=== PATIENT | male | born 1960 | race Caucasian/White ===

== ENCOUNTER 2016-11-29 17:52 | Inpatient (IN) | payer MEDICARE ==
[~2016-11-29] VITALS: Ht 188 cm; Wt 58.1 kg
[2016-11-29 18:05] VITALS: BP_SYST 112
[2016-11-29] MEDS ORDERED: NOR10 PO (18:29)
[2016-11-29] MEDS ORDERED: METF-509 PO (18:29)
[2016-11-29] MEDS ORDERED: DIVA125C4 PO (18:29)
[2016-11-29] MEDS ORDERED: LEVE500T53 PO (18:29)
[2016-11-29] MEDS ORDERED: FERR-57 PO (18:29)
[2016-11-29] MEDS ORDERED: SERT-131 PO (18:29)
[2016-11-29] MEDS ORDERED: PRAV10TA PO (18:29)
[2016-11-29] MEDS ORDERED: ACET325T53 PO (18:29)
[2016-11-29] MEDS ORDERED: OMEP1CAP2 PO (18:29)
[2016-11-29] MEDS ORDERED: METO-442 PO (18:29)
[2016-11-29] MEDS ORDERED: PHEN200C3 PO (18:29)
[2016-11-29] MEDS ORDERED: ASPI81TA2 PO (18:29)
[2016-11-29 19:40] LABS: BASOPHILS # (AUTO) 0.1 K/uL (0.0-0.2); BASOPHILS % (AUTO) 0.9 % (0.0-2.0); EOSINOPHILS # (AUTO) 0.1 K/uL (0.0-0.4); EOSINOPHILS % (AUTO) 0.5 % (0.0-4.0); HEMATOCRIT 39.5 % (36-54); HEMOGLOBIN 12.9 g/dL (14.0-18.0); MEAN CORPUSCULAR HEMOGLOBIN 29 pg (27-31); MEAN CORPUSCULAR HGB CONC 33 % (32-36); MEAN CORPUSCULAR VOLUME 90 fL (79.0-98.0); MONOCYTES # (AUTO) 0.9 K/uL (0.0-1.0); MONOCYTES % (AUTO) 8.4 % (1.7-9.3); NEUTROPHILS # (AUTO) 7.9 K/uL (1.8-7.7); NEUTROPHILS % (AUTO) 72.2 % (40.0-70.0); PLATELET COUNT (AUTO) 166 K/uL (130-430); RED CELL DISTRIBUTION WIDTH 14.3 % (9.0-15.0)
[2016-11-29 19:55] LABS: CALCIUM 8.6 mg/dL (8.4-11.0); CREATININE 0.63 mg/dL (0.55-1.30); INR 1.1 (0.80-1.20); POTASSIUM 3.6 mmol/L (3.5-5.1); PROTHROMBIN TIME 12.1 SECS (9.5-12.5)
[2016-11-29 20:13] LABS: ALBUMIN 2.9 g/dL (3.4-4.8); FREE T4 (FREE THYROXINE) 0.6 ng/dL (0.6-1.6); TOTAL BILIRUBIN 0.6 mg/dL (0.0-1.0); TOTAL PROTEIN, SERUM 7.5 g/dL (6.4-8.3)
[2016-11-29] MEDS ORDERED: NACL 0.9% 1,000 ML IV ONE (20:30)
[2016-11-29] MEDS: SIMVASTATIN 10 MG TABLET PO SCH (21:00)
[2016-11-29 21:25] VITALS: BP_SYST 132
[2016-11-29 21:39] VITALS: BP_SYST 132
[2016-11-29] MEDS ORDERED: INSULIN REGULAR, HUMAN 100 UNITS/ML, 10 ML VIAL (novoLIN R) SUBCUT PRN (22:15)
[2016-11-29] MEDS: levETIRAcetam 500 MG TABLET PO SCH (22:15)
[2016-11-29] MEDS: METOPROLOL TARTRATE 50 MG TABLET PO SCH (22:15)
[2016-11-29] MEDS ORDERED: DEXTROSE 50% JECT 50 ML DISP.SYRIN IVP PRN (22:15)
[2016-11-30 00:12] VITALS: BP_SYST 137
[2016-11-30] MEDS ORDERED: levETIRAcetam 500 MG TABLET PO ONE (00:15)
[2016-11-30] MEDS ORDERED: SIMVASTATIN 10 MG TABLET PO ONE (00:15)
[2016-11-30] MEDS ORDERED: METOPROLOL TARTRATE 50 MG TABLET PO ONE (00:15)
[2016-11-30] MEDS: LR 1,000 ML IV SCH ×2 (00:17→09:02)
[2016-11-30 04:00] VITALS: BP_SYST 92
[2016-11-30 06:52] LABS: CALCIUM 8.9 mg/dL (8.4-11.0); CREATININE 0.59 mg/dL (0.55-1.30); POTASSIUM 3.4 mmol/L (3.5-5.1)
[2016-11-30 07:00] LABS: BASOPHILS % (AUTO) 0.3 % (0.0-2.0); EOSINOPHILS # (AUTO) 0.1 K/uL (0.0-0.4); EOSINOPHILS % (AUTO) 1.1 % (0.0-4.0); HEMATOCRIT 39.6 % (36-54); LYMPHOCYTES # (AUTO) 2.2 K/uL (1.0-5.5); LYMPHOCYTES % (AUTO) 23.3 % (20.5-51.5); MEAN CORPUSCULAR HEMOGLOBIN 29 pg (27-31); MEAN CORPUSCULAR HGB CONC 33 % (32-36); MEAN CORPUSCULAR VOLUME 90 fL (79.0-98.0); MONOCYTES % (AUTO) 10.9 % (1.7-9.3); NEUTROPHILS # (AUTO) 6.2 K/uL (1.8-7.7); NEUTROPHILS % (AUTO) 64.4 % (40.0-70.0); PLATELET COUNT (AUTO) 153 K/uL (130-430); RED BLOOD CELL COUNT(AUTO) 4.42 MIL/uL (4.2-6.2); WHITE BLOOD COUNT (AUTO) 9.6 K/uL (4.8-10.8)
[2016-11-30 08:00] VITALS: BP_SYST 102
[2016-11-30] MEDS ORDERED: CEFAZOLIN 1 GM IVPB PREMIX 50 ML IV ONE (08:15)
[2016-11-30] MEDS: metFORMIN HCL 500 MG TABLET PO SCH (08:30)
[2016-11-30] MEDS: amLODIPine BESYLATE 10 MG TABLET PO SCH (09:00)
[2016-11-30] MEDS: ACETAMINOPHEN 325 MG TABLET PO SCH ×2 (09:00→20:55)
[2016-11-30] MEDS: ASPIRIN 81 MG TAB.CHEW PO SCH (09:00)
[2016-11-30] MEDS: METOPROLOL TARTRATE 50 MG TABLET PO SCH ×2 (09:00→20:55)
[2016-11-30] MEDS ORDERED: PHENYTOIN SODIUM PO SCH (09:00)
[2016-11-30] MEDS: levETIRAcetam 500 MG TABLET PO SCH (09:00)
[2016-11-30] MEDS: FERROUS SULFATE 325 MG TABLET.DR PO SCH ×2 (09:00→20:54)
[2016-11-30] MEDS ORDERED: OMEPRAZOLE PO SCH (09:00)
[2016-11-30] MEDS: PANTOPRAZOLE SODIUM 40 MG TAB PO SCH (09:00)
[2016-11-30] MEDS ORDERED: DIVALPROEX SODIUM 125 MG CAP.(DEPAKOTE SPRINKLE) PO SCH (09:00)
[2016-11-30] MEDS ORDERED: SODIUM BICARBONATE PO SCH (09:00)
[2016-11-30 11:47] VITALS: BP_SYST 102
[2016-11-30] MEDS: SERTRALINE HCL 50 MG TABLET PO SCH (15:31)
[2016-11-30] MEDS: D5LR 1,000 ML IV SCH (16:10)
[2016-11-30 17:00] VITALS: BP_SYST 105
[2016-11-30] MEDS ORDERED: VALPROATE SODIUM 500 MG in D5W 100 ML IV SCH (17:00)
[2016-11-30] MEDS ORDERED: POTASSIUM CHLORIDE 40 MEQ, LIDOCAINE JECT 2% PF 100 MG 50 MG in NS 250 ML IV ONE (17:00)
[2016-11-30] MEDS ORDERED: VALPROATE SODIUM 100 MG/ML VIAL (DEPACON) IV ONE (17:29)
[2016-11-30] MEDS: PHENYTOIN SODIUM 100 MG/2 ML VIAL (DILANTIN) IVP SCH ×2 (18:04→22:00)
[2016-11-30] MEDS: VALPROATE SODIUM 500 MG in D5W 100 ML IV SCH (18:04)
[2016-11-30 19:45] VITALS: BP_SYST 103
[2016-11-30] MEDS: SIMVASTATIN 10 MG TABLET PO SCH (20:55)
[2016-11-30] MEDS ORDERED: PRAVASTATIN SODIUM 10 MG TABLET (PRAVACHOL) PO SCH (21:00)
[2016-11-30] MEDS ORDERED: PHENYTOIN SODIUM 100 MG/2 ML VIAL (DILANTIN) IVP ONE (21:45)
[2016-12-01 01:18] VITALS: BP_SYST 122
[2016-12-01 03:27] VITALS: BP_SYST 136
[2016-12-01] MEDS: D5LR 1,000 ML IV SCH ×2 (05:18→22:57)
[2016-12-01] MEDS: VALPROATE SODIUM 500 MG in D5W 100 ML IV SCH ×2 (05:20→18:28)
[2016-12-01] MEDS: PHENYTOIN SODIUM 100 MG/2 ML VIAL (DILANTIN) IVP SCH ×3 (05:22→22:57)
[2016-12-01 06:09] LABS: HEPATITIS A AB, IgM Negative (Negative); HEPATITIS B CORE AB, IgM Negative (Negative); HEPATITIS B SURFACE AG Negative (Negative)
[2016-12-01 06:39] LABS: INR 1.5 (0.80-1.20); PROTHROMBIN TIME 16.2 SECS (9.5-12.5)
[2016-12-01 06:49] LABS: ALBUMIN 2.9 g/dL (3.4-4.8); BILIRUBIN,DIRECT 0.3 mg/dL (0.0-0.3); CALCIUM 8.2 mg/dL (8.4-11.0); CREATININE 0.55 mg/dL (0.55-1.30); TOTAL BILIRUBIN 0.6 mg/dL (0.0-1.0); TOTAL PROTEIN, SERUM 7.7 g/dL (6.4-8.3)
[2016-12-01 06:50] LABS: BASOPHILS % (AUTO) 0.3 % (0.0-2.0); EOSINOPHILS # (AUTO) 0.1 K/uL (0.0-0.4); EOSINOPHILS % (AUTO) 1.2 % (0.0-4.0); HEMATOCRIT 38.2 % (36-54); HEMOGLOBIN 12.9 g/dL (14.0-18.0); LYMPHOCYTES # (AUTO) 1.8 K/uL (1.0-5.5); LYMPHOCYTES % (AUTO) 21.9 % (20.5-51.5); MEAN CORPUSCULAR HEMOGLOBIN 30 pg (27-31); MEAN CORPUSCULAR HGB CONC 34 % (32-36); MEAN CORPUSCULAR VOLUME 90 fL (79.0-98.0); MONOCYTES # (AUTO) 0.7 K/uL (0.0-1.0); MONOCYTES % (AUTO) 8.5 % (1.7-9.3); NEUTROPHILS # (AUTO) 5.7 K/uL (1.8-7.7); NEUTROPHILS % (AUTO) 68.1 % (40.0-70.0); PLATELET COUNT (AUTO) 158 K/uL (130-430); RED BLOOD CELL COUNT(AUTO) 4.23 MIL/uL (4.2-6.2); RED CELL DISTRIBUTION WIDTH 14.1 % (9.0-15.0); WHITE BLOOD COUNT (AUTO) 8.3 K/uL (4.8-10.8)
[2016-12-01 06:56] LABS: POTASSIUM 2.9 mmol/L (3.5-5.1)
[2016-12-01] MEDS ORDERED: POTASSIUM CHLORIDE 40 MEQ in NS 250 ML IV ONE (07:30)
[2016-12-01] MEDS ORDERED: MEPERIDINE HCL/PF 100 MG/ML AMP ONE (07:46)
[2016-12-01 08:00] VITALS: BP_SYST 118
[2016-12-01] MEDS: metFORMIN HCL 500 MG TABLET PO SCH (08:30)
[2016-12-01] MEDS: PANTOPRAZOLE SODIUM 40 MG TAB PO SCH (09:00)
[2016-12-01] MEDS: SERTRALINE HCL 50 MG TABLET PO SCH (09:00)
[2016-12-01] MEDS: amLODIPine BESYLATE 10 MG TABLET PO SCH (09:00)
[2016-12-01] MEDS: METOPROLOL TARTRATE 50 MG TABLET PO SCH ×2 (09:00→20:57)
[2016-12-01] MEDS: ACETAMINOPHEN 325 MG TABLET PO SCH ×2 (09:00→21:00)
[2016-12-01] MEDS: FERROUS SULFATE 325 MG TABLET.DR PO SCH ×2 (09:00→20:54)
[2016-12-01] MEDS: ASPIRIN 81 MG TAB.CHEW PO SCH (09:00)
[2016-12-01] MEDS ORDERED: CEFAZOLIN 1 GM IVPB PREMIX 50 ML IV ONE ×2 (12:40→13:00)
[2016-12-01] MEDS: MIDAZOLAM HCL 5 MG/5 ML VIAL ONE ×4 (12:58→13:07)
[2016-12-01] MEDS: MEPERIDINE HCL/PF 50 MG/ML AMP ONE ×3 (12:58→13:02)
[2016-12-01 13:38] LABS: FOLATE (FOLIC ACID) 2.6 ng/mL (>3.0)
[2016-12-01 14:00] VITALS: BP_SYST 130
[2016-12-01 16:54] VITALS: BP_SYST 128
[2016-12-01] MEDS ORDERED: POTASSIUM CHLORIDE 40 MEQ, LIDOCAINE JECT 2% PF 100 MG 50 MG in NS 250 ML IV ONE (17:00)
[2016-12-01] MEDS ORDERED: MORPHINE 2 MG/ML INJ. SYRINGE IVP PRN ×2 (17:00→17:15)
[2016-12-01 20:00] VITALS: BP_SYST 121
[2016-12-01] MEDS: SIMVASTATIN 10 MG TABLET PO SCH (20:54)
[2016-12-02 00:49] VITALS: BP_SYST 105
[2016-12-02 05:01] VITALS: BP_SYST 121
[2016-12-02] MEDS: VALPROATE SODIUM 500 MG in D5W 100 ML IV SCH (05:31)
[2016-12-02] MEDS: PHENYTOIN SODIUM 100 MG/2 ML VIAL (DILANTIN) IVP SCH (05:32)
[2016-12-02] MEDS ORDERED: VALPROATE SODIUM 100 MG/ML VIAL (DEPACON) IV ONE (05:32)
[2016-12-02] MEDS: D5LR 1,000 ML IV SCH (07:00)
[2016-12-02 07:34] LABS: BASOPHILS % (AUTO) 0.1 % (0.0-2.0); EOSINOPHILS % (AUTO) 0.3 % (0.0-4.0); HEMATOCRIT 32.5 % (36-54); HEMOGLOBIN 11.3 g/dL (14.0-18.0); LYMPHOCYTES # (AUTO) 1.8 K/uL (1.0-5.5); LYMPHOCYTES % (AUTO) 16.7 % (20.5-51.5); MEAN CORPUSCULAR HEMOGLOBIN 31 pg (27-31); MEAN CORPUSCULAR HGB CONC 35 % (32-36); MEAN CORPUSCULAR VOLUME 90 fL (79.0-98.0); MONOCYTES # (AUTO) 0.9 K/uL (0.0-1.0); MONOCYTES % (AUTO) 8.8 % (1.7-9.3); NEUTROPHILS # (AUTO) 7.8 K/uL (1.8-7.7); NEUTROPHILS % (AUTO) 74.1 % (40.0-70.0); PLATELET COUNT (AUTO) 145 K/uL (130-430); RED BLOOD CELL COUNT(AUTO) 3.62 MIL/uL (4.2-6.2); WHITE BLOOD COUNT (AUTO) 10.5 K/uL (4.8-10.8)
[2016-12-02 07:44] LABS: CALCIUM 7.9 mg/dL (8.4-11.0); CREATININE 0.38 mg/dL (0.55-1.30); POTASSIUM 3.6 mmol/L (3.5-5.1)
[2016-12-02 08:25] VITALS: BP_SYST 125
[2016-12-02 08:44] LABS: ALBUMIN 2.3 g/dL (3.4-4.8)
[2016-12-02] MEDS ORDERED: CHOLECALCIFEROL (VITAMIN D3) 2,000 UNIT TABLET GT SCH (09:00)
[2016-12-02 09:09] LABS: BILIRUBIN,DIRECT 0.3 mg/dL (0.0-0.3); TOTAL BILIRUBIN 0.5 mg/dL (0.0-1.0); TOTAL PROTEIN, SERUM 6.1 g/dL (6.4-8.3)
[2016-12-02] MEDS: metFORMIN HCL 500 MG TABLET PO SCH (09:57)
[2016-12-02] MEDS: METOPROLOL TARTRATE 50 MG TABLET PO SCH (09:58)
[2016-12-02] MEDS: ACETAMINOPHEN 325 MG TABLET PO SCH (09:58)
[2016-12-02] MEDS: ASPIRIN 81 MG TAB.CHEW PO SCH (09:58)
[2016-12-02] MEDS: FERROUS SULFATE 325 MG TABLET.DR PO SCH (09:59)
[2016-12-02] MEDS: PANTOPRAZOLE SODIUM 40 MG TAB PO SCH (09:59)
[2016-12-02] MEDS: SERTRALINE HCL 50 MG TABLET PO SCH (09:59)
[2016-12-02] MEDS: amLODIPine BESYLATE 10 MG TABLET PO SCH (10:04)
[2016-12-02] MEDS ORDERED: MUPIROCIN 2% TOPICAL OINTMENT 22 GM TP SCH (10:30)
[2016-12-02] MEDS ORDERED: VITD2000 GT (10:34)
[2016-12-02] MEDS ORDERED: MUPI1OIN4 NS (10:34)
[2016-12-02] MEDS ORDERED: DOXY-4 GT (10:34)
[2016-12-02] MEDS ORDERED: DOXYCYCLINE HYCLATE 100 MG CAPSULE GT ONE (11:30)
[2016-12-02 11:54] VITALS: BP_SYST 112
[2016-12-02 16:15] VITALS: BP_SYST 119
[2016-12-02 16:53] VITALS: BP_SYST 119
[2016-12-02] MEDS ORDERED: DOXYCYCLINE HYCLATE 100 MG CAPSULE GT SCH (21:00)
== END 2016-12-02 18:55 | DRG 421 ==
LOC: SED 17:52 → STU 20:50 → SMU 12-01 19:02
PROVIDERS: ADMIT Internal Medicine; ATTEND Internal Medicine
PROC: 0DH63UZ Insertion of Feeding Device into Stomach, Percutaneous Approach (ICD-10-PCS; principal; 2016-12-01 09:00)
DX: R62.7 Adult failure to thrive (principal); J69.0 Pneumonitis due to inhalation of food and vomit; G82.50 Quadriplegia, unspecified; R13.10 Dysphagia, unspecified; E44.1 Mild protein-calorie malnutrition; E55.9 Vitamin D deficiency, unspecified; E86.0 Dehydration; F03.90 Unspecified dementia, unspecified severity, without behavioral disturbance, psychotic disturbance, mood disturbance, and anxiety; I69.351 Hemiplegia and hemiparesis following cerebral infarction affecting right dominant side; E78.5 Hyperlipidemia, unspecified; E11.9 Type 2 diabetes mellitus without complications; I10 Essential (primary) hypertension; G40.909 Epilepsy, unspecified, not intractable, without status epilepticus; R47.1 Dysarthria and anarthria; E87.6 Hypokalemia; K29.80 Duodenitis without bleeding; Z68.1 Body mass index [BMI] 19.9 or less, adult; Z79.82 Long term (current) use of aspirin; Z79.899 Other long term (current) drug therapy; Z79.84 Long term (current) use of oral hypoglycemic drugs
CPT/HCPCS: 36415; 43246; 71010; 71250-TC; 74000-TC; 76700-TC; 80048; 80053; 80074; 80076; 82306; 82607; 82746; 82962; 83036; 83605; 83735-TC; 83880; 84439; 84484; 85025; 85610-TC; 87040-TC; 87081; 92610-GN; 93005; 97110-GP; 97530-GP; J0690; J1165; J1815; J2175; J2250; J2270; J3480; J7030; J7050; J7060; J7120

== ENCOUNTER 2017-02-12 21:56 | Inpatient (IN) | payer MEDICARE ==
[~2017-02-12] VITALS: Ht 188 cm; Wt 70.3 kg
[2017-02-12 21:56] VITALS: BP_SYST 190
[~2017-02-12 21:56] MED LIST: ACET325T53 GT; ASPI81TA2 GT; DIVA125C4 PO; DOXY-4 GT; FERR-57 GT; LEVE500T53 PO; METF-509 GT; METO-442 GT; MUPI1OIN4 NS; NOR10 PO; OMEP1CAP2 PO; PHEN200C3 PO; PRAV10TA GT; SERT-131 GT; VITD2000 GT
--- NOTE | 2017-02-12 21:56 | NUR ---
Patient to ER bed 1 to gown for evaluation. Side rails up. Report given to AMIE CHINCHILLA.
--- NOTE | 2017-02-12 22:00 | NUR ---
Pt is came by ALS for a in progress seizure. EMS states the pt is from a SNF and has been actively seizing for one hour prior to arrival. Pt has an 18 G IV in L wrist. Pt was given Versed IN by the paramedics in the field. Pt has hx seizures. Airway is patent. Will continue to monitor via threat monitoring analyst. No distress noted.
[2017-02-12] MEDS ORDERED: DIAZEPAM 10 MG/2 ML DISP.SYRIN IVP ONE ×3 (22:15→23:00)
[2017-02-12] MEDS ORDERED: DIAZEPAM 10 MG/2 ML DISP.SYRIN ONE (22:15)
--- NOTE | 2017-02-12 22:15 | NUR ---
ENRRIQUE Vann at bedside examining patient.
[2017-02-12] MEDS ORDERED: ACET-2165 GT (22:35)
[2017-02-12] MEDS ORDERED: PHEN125O8 GT (22:39)
[2017-02-12] MEDS ORDERED: IPRA3AMP9 INH (22:40)
[2017-02-12] MEDS ORDERED: LEVE100S GT (22:41)
[2017-02-12] MEDS ORDERED: MEMA1CAP4 GT (22:45)
--- NOTE | 2017-02-12 22:45 | NUR ---
Patient reports pain 0/10 FLACC. No adverse reactions noted. Will continue to monitor.
[2017-02-12] MEDS ORDERED: FAMO20TA8 GT (22:46)
--- NOTE | 2017-02-12 22:48 | NUR ---
Medication reconciliation completed with information provided by [facility]. Any prior medication reconciliation on file was reviewed and corrected.
--- NOTE | 2017-02-12 22:48 | NUR ---
Dr. Vann gave verbal order to give 10 mg of Valium instead of 5 mg.
[2017-02-12] MEDS ORDERED: LORazepam 2 MG/ML VIAL IVP PRN (23:30)
[2017-02-12] MEDS ORDERED: INSULIN REGULAR, HUMAN 100 UNITS/ML, 10 ML VIAL (novoLIN R) SUBCUT PRN (23:30)
[2017-02-12 23:32] LABS: BASOPHILS % (AUTO) 0.4 % (0.0-2.0); EOSINOPHILS % (AUTO) 0.5 % (0.0-4.0); HEMATOCRIT 42.6 % (36-54); LYMPHOCYTES # (AUTO) 1.3 K/uL (1.0-5.5); LYMPHOCYTES % (AUTO) 13.9 % (20.5-51.5); MEAN CORPUSCULAR HEMOGLOBIN 31 pg (27-31); MEAN CORPUSCULAR HGB CONC 33 % (32-36); MEAN CORPUSCULAR VOLUME 93 fL (79.0-98.0); MONOCYTES # (AUTO) 0.6 K/uL (0.0-1.0); MONOCYTES % (AUTO) 5.8 % (1.7-9.3); NEUTROPHILS # (AUTO) 7.7 K/uL (1.8-7.7); NEUTROPHILS % (AUTO) 79.4 % (40.0-70.0); PLATELET COUNT (AUTO) 152 K/uL (130-430); RED BLOOD CELL COUNT(AUTO) 4.57 MIL/uL (4.2-6.2); WHITE BLOOD COUNT (AUTO) 9.6 K/uL (4.8-10.8)
[2017-02-12 23:39] LABS: CALCIUM 8.2 mg/dL (8.4-11.0); CREATININE 0.42 mg/dL (0.55-1.30); POTASSIUM 3.5 mmol/L (3.5-5.1)
[2017-02-12 23:44] LABS: ALBUMIN 3.3 g/dL (3.4-4.8); TOTAL BILIRUBIN 0.2 mg/dL (0.0-1.0); TOTAL PROTEIN, SERUM 7.5 g/dL (6.4-8.3)
--- NOTE | 2017-02-12 23:45 | NUR ---
Patient will be admitted to care of Dr. Díaz. Admitted to Telemetry unit. Will go to room 133A. Belongings list completed. Summary report printed. Report will be given at bedside.
[2017-02-12 23:56] VITALS: BP_SYST 137
--- NOTE | 2017-02-12 23:56 | NUR ---
ADMISSION NOTES; -Pt arrived from ER dept via a gurney assisting by Denisse to room 133-A. Pt is alerted x1,nonverbal. NO s/s any chest pain,pain,sob, or any acute distress. IV site of left f/a #18,patent, no s/s any infiltration after flushed w/ NS,drsg cdi. Rashes of rt f/a noted. Skin intact. G-tube site-drsg cdi. Vital signs 97.6, 20, 79, 137/79,f8hpf=31% r/a. No family is at bedside. Lung sounds clear throughout all lobes. Abdomen soft & nondistended,bs present. Seizure precaution in place. All side rails x3, low and locked position. All safety measures in place. Call light w/in reach. Continue to monitor pt.
--- NOTE | 2017-02-12 23:56 | NUR ---
Admission Note Received patient from ER with diagnosis of Breakthrough Seizures. Initial Plan of Care discussed-patient verbalized understanding. Oriented to room, call light, pain management and safety.
[2017-02-13] VITALS (8 sets, daily range): BP systolic 124–150
--- NOTE | 2017-02-13 00:40 | NUR ---
NOTES; PT LEFT FROM ROOM FOR CT PROCEDURE -No s/s any acute distress noted. Assisting by rad biomedical electronics technician via bed to radiology unit. Addendum: 02/13/17 at 0113 by Ashley Hutchison RN NOTES; RETURNED FROM CT PROCEDURE TO ROOM; -Pt's condition stable.
[2017-02-13] MEDS: NACL 0.9% 1,000 ML IV SCH ×2 (01:12→15:09)
--- NOTE | 2017-02-13 01:12 | NUR ---
NOTES; -Pt just arrived from Radiology unit to pt's room 133-A assisting by Outside Cutter Hand via bed. Pt's condition stable. Starting to infusing IVF NS @ 70ml/hr. IV site of left f/a patent, no s/s any infiltration noted,drsg cdi. Also, checked residual less than 5ml, patent, starting G-tube feeding with DiabeticSource AC @ 40ml/hr. Drsg cdi of G-tube site. Keep HOB greater than 30 degree entire shift. Seizure precaution in place. All side rails padded. Bed alarm in place. Bed low, position, side rails x3. All safety measures in place. Call light w/in reach. Continue to monitor pt.
--- NOTE | 2017-02-13 03:48 | NUR ---
ROUNDS; -Pt is resting. Vital signs stable. NO s/s any acute distress noted. IVF NS @ 70ml/hr. IV site patent, no s/s any infiltration noted,drsg cdi. Diabeticsource AC @ 40ml/hr. Keep HOB greater than 30 degree entire shift. No seizure activity noted. Seizure precaution in place. All side rails padded. Bed alarm in place. Bed low, position, side rails x3. All safety measures in place. Call light w/in reach. Continue to monitor pt
--- NOTE | 2017-02-13 05:25 | NUR ---
ROUNDS; BLOOD CTRRA=848,NO SSI COVERAGE. -Pt is resting. No s/s any acute distress noted. IVF NS @ 70ml/hr. IV site patent, no s/s any infiltration noted,drsg cdi. Diabeticsource AC @ 40ml/hr. Keep HOB greater than 30 degree entire shift. No seizure activity noted. Seizure precaution in place. All side rails padded. Bed alarm in place. Bed low, position, side rails x3. All safety measures in place. Call light w/in reach. Continue to monitor pt
--- NOTE | 2017-02-13 06:52 | NUR ---
CLOSING NOTES; -Pt is resting in bed. No s/s any acute distress noted. IVF NS @ 70ml/hr. IV site of left f/a patent, no s/s any infiltration noted,drsg cdi. G-tube feeding with Diabeticsource AC @ 40ml/hr. Keep HOB greater than 30 degree entire shift. No seizure activity noted entire shift. Seizure precaution in place. All side rails padded. Bed alarm in place. Bed low, position, side rails x3. All safety measures in place. Call light w/in reach. Will endorse to incoming nurse to continue care.
[2017-02-13 07:45] LABS: ALBUMIN 3.2 g/dL (3.4-4.8); CALCIUM 8.6 mg/dL (8.4-11.0); CREATININE 0.37 mg/dL (0.55-1.30); POTASSIUM 3.7 mmol/L (3.5-5.1); TOTAL BILIRUBIN 0.3 mg/dL (0.0-1.0); TOTAL PROTEIN, SERUM 7.4 g/dL (6.4-8.3)
--- NOTE | 2017-02-13 08:02 | NUR ---
NEUROLOGY CONSULT Spoke with Ebony regarding request for consultation with Dr. Purdy ([phone]) for reason: karina parra.
[2017-02-13 08:20] LABS: BASOPHILS % (AUTO) 0.3 % (0.0-2.0); EOSINOPHILS % (AUTO) 0.2 % (0.0-4.0); HEMATOCRIT 43.4 % (36-54); HEMOGLOBIN 14.4 g/dL (14.0-18.0); LYMPHOCYTES # (AUTO) 1.6 K/uL (1.0-5.5); LYMPHOCYTES % (AUTO) 11.9 % (20.5-51.5); MEAN CORPUSCULAR HEMOGLOBIN 31 pg (27-31); MEAN CORPUSCULAR HGB CONC 33 % (32-36); MEAN CORPUSCULAR VOLUME 93 fL (79.0-98.0); MONOCYTES % (AUTO) 7.2 % (1.7-9.3); NEUTROPHILS # (AUTO) 10.7 K/uL (1.8-7.7); NEUTROPHILS % (AUTO) 80.4 % (40.0-70.0); PLATELET COUNT (AUTO) 155 K/uL (130-430); RED BLOOD CELL COUNT(AUTO) 4.68 MIL/uL (4.2-6.2); RED CELL DISTRIBUTION WIDTH 11.9 % (9.0-15.0); WHITE BLOOD COUNT (AUTO) 13.3 K/uL (4.8-10.8)
[2017-02-13] MEDS ORDERED: IPRATROPIUM/ALBUTEROL SULFATE 3 ML AMPUL.NEB INH PRN (08:30)
[2017-02-13] MEDS ORDERED: levETIRAcetam 500 MG TABLET GT SCH (09:00)
[2017-02-13] MEDS ORDERED: SIMVASTATIN 10 MG TABLET PO SCH ×2 (09:00→09:26)
--- NOTE | 2017-02-13 09:45 | NUR ---
SKIN CARE/COMFORT Complete TSB done total care, perineal care no sign of pressure sore ,kept dry/clean skin skin cream barrier applied , oral care, repositioned ,off load bilateral heel to avoid pressure sore , head of bead kept semi fowlers aspiration precaution , needs attended.
[2017-02-13] MEDS: PHENYTOIN 100 MG/4 ML UDC (DILANTIN) GT SCH ×2 (10:03→21:31)
[2017-02-13] MEDS: SERTRALINE HCL 50 MG TABLET GT SCH (10:03)
[2017-02-13] MEDS: ASPIRIN 81 MG TAB.CHEW GT SCH (10:04)
[2017-02-13] MEDS: METOPROLOL TARTRATE 50 MG TABLET GT SCH ×2 (10:04→21:32)
--- NOTE | 2017-02-13 12:11 | NUR ---
Neuro Patient awake , non verbal able to follow instruction ,no sign of acute discomfort , Gtube feeding tolerates well.
--- NOTE | 2017-02-13 13:25 | NUR ---
MD rounds Seen and examined by the neurologist , open eyes to verbal stimuli follows simple instruction ,non verbal ., with new order carried out.
--- NOTE | 2017-02-13 15:00 | NUR ---
Patient repositioned by staff every 2 hours with pillow support.
--- NOTE | 2017-02-13 18:38 | NUR ---
NEURO/SKIN/COMFORT Patient awake/alert , non verbal follow simple instruction , soak with urine perineal care given kept/dry skin cream barrier applied no sign of pressure sore , repositioned.
[2017-02-13] MEDS ORDERED: PRAVASTATIN SODIUM 10 MG TABLET (PRAVACHOL) GT SCH (21:00)
[2017-02-13] MEDS: levETIRAcetam 500 MG TABLET GT SCH (21:31)
[2017-02-13] MEDS: SIMVASTATIN 10 MG TABLET GT SCH (21:33)
[2017-02-14] VITALS: BP_SYST 133
[2017-02-14] MEDS: NACL 0.9% 1,000 ML IV SCH ×2 (03:57→21:36)
[2017-02-14 04:00] VITALS: BP_SYST 130
--- NOTE | 2017-02-14 06:00 | NUR ---
pt.presented challenges:pt.presents jasson-paralysis:rt.side.pt.requirs cleaning q-2hrs:incontinent:urine; pt.presents aggitated status if not attended to/in 2 hours:will remove clothing padding for sides rails. i have administered ativan;2mg ivp x2.the 2215pm dose was not recorder/noted per the cow:scanner. the 2nd dose was scanned.iv fluids infusing,g-tube feed tolerated.broom air:o2 sat%=96 %.blood glucose assessed;ac/hs:108mg/dl and 133mg/dl.no coverage necessary per sliding scale.call light placed w/in the pt's reach.
[2017-02-14 07:53] VITALS: BP_SYST 157
--- NOTE | 2017-02-14 07:58 | NUR ---
opening notes, received pt in bed, pt is sleeping but arousable to touch, pt is non verbal, no grimacing noted, breathing even and unlabored. no seizure noted. vitals wnl. no fever. r forearm iv #22, patent and intact, no inflammation or leaking noted. gtube feeding on running at 40 cc/hr. no residual. bed in lowest position, bed alarm on. call light in reach. will cont to monitor.
--- NOTE | 2017-02-14 08:18 | NUR ---
Nutrition Update Garry Scale 13 noted. Pt admitted for Breakthrough Seizure Diet: Tubefeeding. BMI: 19.9 kg/m2 RD to follow per nutrition care standards.
[2017-02-14] MEDS: METOPROLOL TARTRATE 50 MG TABLET GT SCH ×2 (08:43→21:33)
[2017-02-14] MEDS: SERTRALINE HCL 50 MG TABLET GT SCH (08:43)
[2017-02-14] MEDS: PHENYTOIN 100 MG/4 ML UDC (DILANTIN) GT SCH ×2 (08:44→22:06)
[2017-02-14] MEDS: levETIRAcetam 500 MG TABLET GT SCH ×2 (08:44→21:32)
[2017-02-14] MEDS: ASPIRIN 81 MG TAB.CHEW GT SCH (08:44)
--- NOTE | 2017-02-14 10:00 | NUR ---
rounding notes, pt in bed, no s/s pain, no sob, no distress. breathing even and unlabored. gtube feeding infusing well. call light in reach. bed alarm on. bed in lowest position. will cont to monitor.
--- NOTE | 2017-02-14 12:00 | NUR ---
rounding notes, pt in bed, pt sleeping comfortably. no s/s pain, no sob, no distress, no seizures noted. call light in reach. bed in lowest position. side rails padded. bed alarm on. will cont to monitor.
[2017-02-14 13:31] VITALS: BP_SYST 140
--- NOTE | 2017-02-14 14:00 | NUR ---
rounding notes, pt in bed, no s/s pain, no sob, no distress, no seizures noted. call light in reach. bed in lowest position. side rails padded. bed alarm on. will cont to monitor.
--- NOTE | 2017-02-14 18:39 | NUR ---
closing notes, pt in bed, pt is alert oriented x1, no s/s of pain, no sob, no distress. no seizures noted this shift. iv fluids infusing well. iv access intact on r fore arm. no leak, no inflammation. g-tube intact, patent, no residual. call light in easy reach. bed in lowest position. bed alarm on. will endorse to night rn.
[2017-02-14 18:45] LABS: BILIRUBIN,URINE NEGATIVE (NEGATIVE); BLOOD, URINE NEGATIVE (NEGATIVE); CLARITY/URINE SL HAZY (CLEAR); COLOR,URINE YELLOW (YELLOW); GLUCOSE,URINE NEGATIVE (NEGATIVE); KETONES,URINE NEGATIVE (NEGATIVE); LEUKOCYTE ESTERASE ,URINE 1+ (NEGATIVE); NITRITE, URINE NEGATIVE (NEGATIVE); PH,URINE 7.5 (5.0-8.0); PROTEIN URINE NEGATIVE (NEGATIVE)
[2017-02-14 18:50] VITALS: BP_SYST 139
[2017-02-14 19:13] LABS: BACTERIA,URINE MODERATE /HPF (None Seen); RBC,URINE 0-3 /HPF (0-3); WBC,URINE 20-50 /HPF (0-3)
[2017-02-14 19:15] LABS: MUCUS,URINE 1+ /LPF (None Seen)
[2017-02-14 20:00] VITALS: BP_SYST 148
--- NOTE | 2017-02-14 20:00 | NUR ---
PM Shift Assessment Received patient lying on low air loss mattress, awake and alert but non-verbal. Assessment compete, vital signs stable, no non-verbal signs of pain noted at this time. Patient was cleaned, repositioned in bed with pillow support and made comfortable. G-tube noted to abdomen, tube feeding infusing well, no residual noted at this time. IV noted to right forearm, IV fluids infusing well, no redness or swelling noted to IV site. seizure pads noted to all side rails for safety precautions. Plan of care updated on board. Patient is not verbally able to make needs known, room near nurses station for close monitoring. All fall, and safety precautions in place, will continue to monitor closely for change in patient status.
[2017-02-14] MEDS: SIMVASTATIN 10 MG TABLET GT SCH (21:32)
--- NOTE | 2017-02-14 22:16 | NUR ---
RN Rounds Patient is resting quietly in bed, no acute distress noted. Scheduled medications were administered as ordered per MD earlier. Blood sugar was assessed, no insulin provided per sliding scale. Patient was repositioned and made comfortable in bed with pillow support. Call light is within reach, all fall and safety precautions in place, will continue to monitor closely.
[2017-02-15] VITALS: BP_SYST 146
--- NOTE | 2017-02-15 00:21 | NUR ---
RN Rounds Patient is resting quietly in bed with eyes open, no acute distress noted. Side rails remain padded for safety. Tube feeding and IV fluids infusing well. Patient was repositioned with pillow support and made comfortable in bed. All fall and safety precautions in place, will continue to monitor closely.
--- NOTE | 2017-02-15 02:32 | NUR ---
RN Rounds Patient is resting quietly in bed with eyes closed, no acute distress noted. No non-verbal signs of pain noted at this time. Tube feeding and IV fluids infusing well. All fall and safety precautions in place, will continue to monitor closely.
--- NOTE | 2017-02-15 04:29 | NUR ---
RN Rounds Patient is resting quietly in bed with eyes open, no acute distress noted. No non-verbal signs of pain noted at this time. Patient was cleaned, repositioned with pillow support and made comfortable in bed. Oral care was provided for comfort. Tube feeding and IV fluids infusing well. All fall and safety precautions in place, will continue to monitor closely.
[2017-02-15 06:04] VITALS: BP_SYST 147
[2017-02-15 06:20] LABS: BASOPHILS % (AUTO) 0.4 % (0.0-2.0); EOSINOPHILS # (AUTO) 0.2 K/uL (0.0-0.4); HEMATOCRIT 44.3 % (36-54); HEMOGLOBIN 14.4 g/dL (14.0-18.0); LYMPHOCYTES # (AUTO) 1.8 K/uL (1.0-5.5); LYMPHOCYTES % (AUTO) 20.8 % (20.5-51.5); MEAN CORPUSCULAR HEMOGLOBIN 30 pg (27-31); MEAN CORPUSCULAR HGB CONC 33 % (32-36); MEAN CORPUSCULAR VOLUME 93 fL (79.0-98.0); MONOCYTES # (AUTO) 0.5 K/uL (0.0-1.0); MONOCYTES % (AUTO) 5.4 % (1.7-9.3); NEUTROPHILS % (AUTO) 71.4 % (40.0-70.0); PLATELET COUNT (AUTO) 200 K/uL (130-430); RED BLOOD CELL COUNT(AUTO) 4.76 MIL/uL (4.2-6.2); RED CELL DISTRIBUTION WIDTH 11.7 % (9.0-15.0); WHITE BLOOD COUNT (AUTO) 8.5 K/uL (4.8-10.8)
[2017-02-15 06:33] LABS: CALCIUM 8.7 mg/dL (8.4-11.0); CREATININE 0.46 mg/dL (0.55-1.30); POTASSIUM 3.4 mmol/L (3.5-5.1)
--- NOTE | 2017-02-15 07:26 | NUR ---
Closing Notes Patient is resting quietly in bed, no acute distress noted. No seizure activity noted throughout shift. Patient is stable, all needs met throughout shift. SBAR report endorsed to AM nurse at bedside.
[2017-02-15 08:00] VITALS: BP_SYST 145
--- NOTE | 2017-02-15 08:00 | NUR ---
Opening Note Report received from Kelly JESSICA nurse. Patient is currently resting in bed. Seizure precautions are in place. IV is on the RFA 22g running NS@70. G-tube is in place running Diabeticsource@30ml/hr. Will continue to monitor.
[2017-02-15] MEDS ORDERED: cefTRIAXone 1 GM in D5W 50 ML IV SCH (09:00)
--- NOTE | 2017-02-15 10:00 | NUR ---
Rounds Patient is resting in bed. No signs of distress noted.
[2017-02-15] MEDS: PHENYTOIN 100 MG/4 ML UDC (DILANTIN) GT SCH (10:24)
[2017-02-15] MEDS: ASPIRIN 81 MG TAB.CHEW GT SCH (10:25)
[2017-02-15] MEDS: METOPROLOL TARTRATE 50 MG TABLET GT SCH (10:25)
[2017-02-15] MEDS: SERTRALINE HCL 50 MG TABLET GT SCH (10:26)
[2017-02-15] MEDS: levETIRAcetam 500 MG TABLET GT SCH (10:26)
--- NOTE | 2017-02-15 10:26 | NUR ---
DISCHARGE PLANNING DC order back to SNF. Faxed SNF referral to [phone]. Will follow up. Addendum: 02/15/17 at 1425 by Kristie DILLARD Returned call to [facility] Traci payne [facility] [phone] Ext:[phone] left voice message requesting return call back. Addendum: 02/15/17 at 1452 by Kristie DILLARD Patient assigned to room 200C [facility] to report [phone]. Called [facility] ambulance [phone] spoke with Esther veronica BLS transport oyster picker 4pm. [facility] Truong made aware. Placed transportation packet in nurse station. Addendum: 02/15/17 at 1453 by Kristie DILLARD Called patient sister Tiffanie Dahl [phone] no answer & msg that voicemail not set up yet. Unable to leave msg. Addendum: 02/15/17 at 1458 by Arthur Fink RN >> Spoke with Artem at [facility] ,tel# [phone] EXT [phone], FAX #[phone]. Stated that the pt. is under retirement care at [facility] and was given auth for 1 year from Sep 2016 to Aug 2017, auth# [id number]*, and to call [facility] auth#[id number]*[facility]. If the pt. needs iv abx, she will need another review faxing to her for a separate auth. (po abx is not required). -- Abeba made aware.
[2017-02-15] MEDS: NACL 0.9% 1,000 ML IV SCH (11:27)
--- NOTE | 2017-02-15 12:02 | NUR ---
DC PLANNING Order to dc back to SNF, called sister Tiffanie Dahl ph [phone], no answer & msg that voicemail not set up yet. Unable to leave msg.
--- NOTE | 2017-02-15 12:02 | NUR ---
Rounds Patient is resting in bed. Seizure precautions are in place.
[2017-02-15 12:51] VITALS: BP_SYST 142
--- NOTE | 2017-02-15 14:00 | NUR ---
Rounds Patient is in stable condition. No signs of distress noted.
[2017-02-15 14:59] VITALS: BP_SYST 145
--- NOTE | 2017-02-15 16:00 | NUR ---
Transition of Care Note Report given to Mary Jo from [facility]. Patient will be transferred to room 200 C. All transition of care instruction were provided to the paramedics due to the patient's cognitive status. IV is on the RFA 22g. IV will be left in place per MD order. Patient is to continue IV antibiotics until 02/17. G-tube feeding was clamped. ID band and tele monitor were removed.
== END 2017-02-15 15:55 | DRG 53 ==
LOC: SED 21:56 → STU 23:21
PROVIDERS: ADMIT General Practice; ATTEND General Practice
DX: G40.909 Epilepsy, unspecified, not intractable, without status epilepticus (principal); I69.354 Hemiplegia and hemiparesis following cerebral infarction affecting left non-dominant side; I10 Essential (primary) hypertension; N39.0 Urinary tract infection, site not specified; E11.9 Type 2 diabetes mellitus without complications; Z79.899 Other long term (current) drug therapy; Z79.82 Long term (current) use of aspirin; Z79.1 Long term (current) use of non-steroidal anti-inflammatories (NSAID)
CPT/HCPCS: 36415; 70450-TC; 71010; 80048; 80053; 80185-TC; 81000-TC; 82962; 83735-TC; 85025; 87081; 87086; 96374; 96375; 99285; J0696; J1815; J2060; J3360; J7030; J7060

== ENCOUNTER 2019-11-20 22:45 | Emergency (ER) | payer BC, MEDICARE ==
[~2019-11-20] VITALS: Ht 175.3 cm; Wt 81.6 kg
[2019-11-20 22:45] VITALS: BP_SYST 129
[~2019-11-20 22:45] MED LIST changes: +ACET-2165 GT; +ASPI-1155 GT; -ASPI81TA2 GT; -DIVA125C4 PO; -DOXY-4 GT; +FAMO20TA8 GT; +IPRA3AMP9 INH; -LEVE500T53 PO; +MEMA1CAP4 GT; -MUPI1OIN4 NS; -NOR10 PO; -OMEP1CAP2 PO; +PHEN125O3 GT; -PHEN200C3 PO
[2019-11-20] MEDS: ASPIRIN 81 MG TAB.CHEW PO ONE (23:09)
[2019-11-20] MEDS ORDERED: GASTROGRAFIN 120 ML ONE (23:16)
[2019-11-20 23:30] VITALS: BP_SYST 129
== END 2019-11-20 23:30 | disposition home or self-care (01) ==
LOC: SED 22:45
DX: K94.23 Gastrostomy malfunction (principal); E11.9 Type 2 diabetes mellitus without complications; I10 Essential (primary) hypertension; Z86.79 Personal history of other diseases of the circulatory system; Z79.899 Other long term (current) drug therapy; Z79.82 Long term (current) use of aspirin
CPT/HCPCS: 43762; 99284; 74240; Q9963

== ENCOUNTER 2020-11-01 09:56 | Emergency (ER) | payer BC ==
[~2020-11-01] VITALS: Ht 175.3 cm; Wt 81.6 kg
[~2020-11-01 09:56] MED LIST changes: -ACET-2165 GT; +ACET325T GT; -METF-509 GT; +METF-834 GT
[2020-11-01 10:00] VITALS: BP_SYST 144
[2020-11-01] MEDS ORDERED: GASTROGRAFIN 120 ML ONE (10:21)
[2020-11-01 11:07] VITALS: BP_SYST 144
== END 2020-11-01 11:07 ==
LOC: SED 09:56
DX: K94.23 Gastrostomy malfunction (principal); I10 Essential (primary) hypertension; E11.9 Type 2 diabetes mellitus without complications; Z86.73 Personal history of transient ischemic attack (TIA), and cerebral infarction without residual deficits; Z79.899 Other long term (current) drug therapy
CPT/HCPCS: 43762; 74240; 99284; Q9963

== ENCOUNTER 2022-12-16 05:12 | Inpatient (IN) | payer BC ==
[~2022-12-16] VITALS: Ht 182.9 cm; Wt 81.6 kg
[2022-12-16 05:12] VITALS: BP_SYST 147
[~2022-12-16 05:12] MED LIST changes: +AMIN30LI2 PO; +ASCO500T20 GT; +DONE10TA44 GT; -FAMO20TA8 GT; +FENO160 GT; +GLIP5TAB26 GT; +INSU100I26 SQ; -IPRA3AMP9 INH; +LACT10SO6 GT; +LEVE1000 GT; +LISI20TA30 GT; -MEMA1CAP4 GT; +MEMA5TAB GT; +MULT-1117 GT; +OMEP20CA15 GT; +PHEN100O4 GT; -PHEN125O3 GT; -PRAV10TA GT; -SERT-131 GT; +SSREG SUBCUT; -VITD2000 GT
--- NOTE | 2022-12-16 05:12 | NUR ---
Patient placed in ER BED 1 for evaluation. Bed in lowest position with siderails up. Report given to ROC CHINCHILLA for continuity of care. Instructed to notify ED staff for any changes in condition or worsening of symptoms. Patient verbalized understanding.
--- NOTE | 2022-12-16 05:16 | NUR ---
ER at bedside examining patient.
[2022-12-16] MEDS ORDERED: ALBUTEROL SULFATE 0.083% 2.5 MG/3 ML VIAL.NEB INH ONE (05:45)
[2022-12-16 06:01] LABS: BASOPHILS # (AUTO) 0.1 K/uL (0.0-0.2); BASOPHILS % (AUTO) 0.3 % (0.0-2.0); EOSINOPHILS # (AUTO) 0.1 K/uL (0.0-0.4); EOSINOPHILS % (AUTO) 0.3 % (0.0-4.0); HEMOGLOBIN 16.4 g/dL (14.0-18.0); LYMPHOCYTES # (AUTO) 1.9 K/uL (1.0-5.5); LYMPHOCYTES % (AUTO) 8.3 % (20.5-51.5); MEAN CORPUSCULAR HEMOGLOBIN 30 pg (27-31); MEAN CORPUSCULAR HGB CONC 33 % (32-36); MEAN CORPUSCULAR VOLUME 90 fL (79.0-98.0); MONOCYTES # (AUTO) 0.9 K/uL (0.0-1.0); MONOCYTES % (AUTO) 4.1 % (1.7-9.3); PLATELET COUNT (AUTO) 207 K/uL (130-430); RED BLOOD CELL COUNT(AUTO) 5.54 MIL/uL (4.2-6.2); RED CELL DISTRIBUTION WIDTH 13.5 % (9.0-15.0)
--- NOTE | 2022-12-16 06:01 | NUR ---
Pt BIBA from [facility] s/p seizure lasting 10 mins Pt postical at this time NAD VSS Placed in bed 1 Will continue to monitor
[2022-12-16] MEDS ORDERED: levETIRAcetam 750 MG in NS 100 ML IV ONE (06:30)
[2022-12-16 06:33] LABS: CALCIUM 8.4 mg/dL (8.4-11.0); CREATININE 0.79 mg/dL (0.55-1.30)
[2022-12-16 06:38] LABS: ALBUMIN 3.3 g/dL (3.4-4.8); TOTAL BILIRUBIN 0.2 mg/dL (0.0-1.0)
[2022-12-16] MEDS ORDERED: ONDANSETRON HCL 4 MG/2 ML VIAL IVP ONE (06:45)
[2022-12-16] MEDS ORDERED: POTASSIUM CHLORIDE 20 MEQ TAB.PRT.SR PO PRN (07:45)
[2022-12-16] MEDS ORDERED: MAGNESIUM SULFATE 50 ML IV PRN (07:45)
[2022-12-16] MEDS ORDERED: IPRATROPIUM/ALBUTEROL SULFATE 3 ML AMPUL.NEB (DUONEB) INH PRN (07:45)
[2022-12-16] MEDS ORDERED: ONDANSETRON HCL 4 MG/2 ML VIAL IVP PRN (07:45)
[2022-12-16] MEDS ORDERED: ZOLPIDEM TARTRATE 5 MG TABLET PO PRN (07:45)
[2022-12-16] MEDS ORDERED: DEXTROSE 50% JECT 50 ML DISP.SYRIN IVP PRN (07:45)
[2022-12-16] MEDS ORDERED: PIPERACILLIN/TAZO 4.5GM/DEX-IS 100 ML IV SCH (07:45)
[2022-12-16] MEDS ORDERED: ACETAMINOPHEN 325 MG TABLET PO PRN ×2 (07:45→08:00)
[2022-12-16] MEDS ORDERED: MORPHINE 2 MG/ML INJ. SYRINGE IVP PRN ×2 (07:45)
[2022-12-16] MEDS ORDERED: LORazepam 2 MG/ML VIAL IVP PRN (07:45)
[2022-12-16] MEDS ORDERED: DOCUSATE SODIUM 100 MG CAPSULE PO PRN (07:45)
--- NOTE | 2022-12-16 07:51 | NUR ---
Admit bed requested Patient will be admitted to care of . Admitted to MS TELE unit. Diagnosis ASPIRATION PNEUMONIA Inpatient (Yes or No) YES Observation (Yes or No) NO Orientation concerns or request close to nursing station (Yes or No) NO Covid Status NA On vent or bipap NO Isolation requirements NO Needs a sitter NO From Home (Yes or if No enter name of facility) [facility] SNF Requires Dialysis (Yes or No) NO Med Rec Completed (Yes of No) YES
[2022-12-16] MEDS ORDERED: VANCOMYCIN HCL 1,250 MG in NS 250 ML IV ONE (08:00)
[2022-12-16] MEDS: NACL 0.9% 1,000 ML IV SCH ×2 (08:41→22:03)
--- NOTE | 2022-12-16 08:50 | NUR ---
REPORT GIVEN TO SARAH CHINCHILLA ROOM 120B
--- NOTE | 2022-12-16 08:50 | NUR ---
Patient will be admitted to care of [facility]. Admitted to TELE unit. Will go to room 120B. Belongings list completed. Complete and up to date summary report printed. SBAR report to be given at bedside with opportunity for questions.
[2022-12-16] MEDS ORDERED: OMEPRAZOLE Non-Formulary 20 MG CAPSULE.DR GT SCH (09:00)
[2022-12-16] MEDS ORDERED: PHENYTOIN 100 MG/4 ML UDC (DILANTIN) GT SCH (09:00)
[2022-12-16] MEDS ORDERED: glipiZIDE XL 5 MG TAB ( GLUCOTROL XL) PO SCH (09:00)
--- NOTE | 2022-12-16 09:16 | NUR ---
CONSULTATION PAGED REASON FOR CONSULTATION:PNEUMONIA WAS CONSULT CALLED?TY PERSON WHO WAS NOTIFIED:MALIA CONSULTING PHYSICIAN:VITALIY DIAZ ANCILLARY SERVICES MANAGER THERAPY SPECIALTY:PULMONARY ANCILLARY SERVICES MANAGER THERAPY PHONE NUMBER:[phone] REQUESTING PHYSICIAN:REGINA SOLORZANO
--- NOTE | 2022-12-16 09:18 | NUR ---
CONSULTATION PAGED REASON FOR CONSULTATION:BT SZ WAS CONSULT CALLED?Y PERSON WHO WAS NOTIFIED:TEXT MESSAGED ISABEL MABRY CONSULTING PHYSICIAN:ISABEL MABRY MOTION PICTURE FILM EXAMINER SPECIALTY:NEURO MOTION PICTURE FILM EXAMINER PHONE NUMBER:[phone] REQUESTING PHYSICIAN:DR.SINGHCARLOS
[2022-12-16] MEDS: PIPERACILLIN/TAZO 3.375 GM in NS 50 ML IV SCH ×3 (09:39→21:49)
[2022-12-16 09:44] VITALS: BP_SYST 147
[2022-12-16] MEDS: ASPIRIN 81 MG TAB.CHEW GT SCH (09:47)
[2022-12-16] MEDS: FERROUS SULFATE 325 MG TABLET.DR GT SCH ×2 (09:47→21:44)
[2022-12-16] MEDS: levETIRAcetam 500 MG TABLET GT SCH ×2 (09:47→21:45)
[2022-12-16] MEDS: LANSOPRAZOLE 30 MG CAPSULE.DR GT SCH (09:47)
[2022-12-16] MEDS: METOPROLOL TARTRATE 50 MG TABLET GT SCH ×2 (09:48→21:48)
[2022-12-16] MEDS: lisinopriL 20 MG TABLET GT SCH (09:48)
[2022-12-16] MEDS: HEPARIN SODIUM,PORCINE 5,000 UNITS/ML VIAL SUBCUT SCH ×2 (09:57→22:01)
[2022-12-16 10:00] VITALS: BP_SYST 138
[2022-12-16 11:24] VITALS: BP_SYST 122
[2022-12-16] MEDS ORDERED: ACETAMINOPHEN 325 MG TABLET GT PRN ×2 (11:35→11:36)
[2022-12-16] MEDS ORDERED: ZOLPIDEM TARTRATE 5 MG TABLET GT PRN (11:37)
[2022-12-16] MEDS ORDERED: DOCUSATE SODIUM 100 MG/10 ML UDC GT PRN (11:45)
[2022-12-16] MEDS ORDERED: POTASSIUM CHLORIDE 20 MEQ/PKT PACKET GT PRN (12:00)
[2022-12-16] MEDS: INSULIN LISPRO SLIDING SCALE 100 UNITS/ML, 3 ML VIAL (humaLOG) SUBCUT PRN (12:30)
[2022-12-16] MEDS: PHENYTOIN 100 MG/4 ML UDC (DILANTIN) GT SCH ×2 (17:08→21:44)
[2022-12-16 17:11] VITALS: BP_SYST 124
[2022-12-16 20:00] VITALS: BP_SYST 121
--- NOTE | 2022-12-16 20:52 | NUR ---
RECEIVED PT LYING IN BED, NO DISTRESS NOTED, NO S/S OF PAIN. NON VERBAL, HOWEVER ANSWERS QUESTIONS BY NODDING HEAD APPROPRIATELY. EXPIRATORY WHEEZING NOTED, WITH NON PRODUCTIVE COUGH. IV TO RT HAND SITE CDI. GT FEEDING INFUSING NO RESIDUAL NOTED. RUE CONTRACTED. CLEANED AND REPOSITIONED. REDNESS NOTED TO B/L GROIN, SCROTUM, AND SACRUM. OINTMENT APPLIED.
[2022-12-16] MEDS: DONEPEZIL HCL 5 MG TABLET (ARICEPT) GT SCH (21:44)
[2022-12-17 00:29] VITALS: BP_SYST 107
[2022-12-17 04:55] LABS: BASOPHILS # (AUTO) 0.1 K/uL (0.0-0.2); BASOPHILS % (AUTO) 0.4 % (0.0-2.0); EOSINOPHILS # (AUTO) 0.1 K/uL (0.0-0.4); HEMATOCRIT 40.4 % (36-54); HEMOGLOBIN 13.6 g/dL (14.0-18.0); LYMPHOCYTES # (AUTO) 1.5 K/uL (1.0-5.5); LYMPHOCYTES % (AUTO) 10.7 % (20.5-51.5); MEAN CORPUSCULAR HEMOGLOBIN 30 pg (27-31); MEAN CORPUSCULAR HGB CONC 34 % (32-36); MEAN CORPUSCULAR VOLUME 88 fL (79.0-98.0); MONOCYTES # (AUTO) 0.7 K/uL (0.0-1.0); MONOCYTES % (AUTO) 5.2 % (1.7-9.3); NEUTROPHILS # (AUTO) 11.2 K/uL (1.8-7.7); NEUTROPHILS % (AUTO) 82.7 % (40.0-70.0); PLATELET COUNT (AUTO) 147 K/uL (130-430); RED BLOOD CELL COUNT(AUTO) 4.57 MIL/uL (4.2-6.2); RED CELL DISTRIBUTION WIDTH 13.4 % (9.0-15.0); WHITE BLOOD COUNT (AUTO) 13.6 K/uL (4.8-10.8)
[2022-12-17 05:05] LABS: CREATININE 0.62 mg/dL (0.55-1.30)
[2022-12-17] MEDS: PIPERACILLIN/TAZO 3.375 GM in NS 50 ML IV SCH ×3 (06:28→21:04)
[2022-12-17] MEDS: INSULIN LISPRO SLIDING SCALE 100 UNITS/ML, 3 ML VIAL (humaLOG) SUBCUT PRN ×3 (06:31→17:04)
[2022-12-17 08:03] VITALS: BP_SYST 128
[2022-12-17] MEDS: ASPIRIN 81 MG TAB.CHEW GT SCH (09:58)
[2022-12-17] MEDS: PHENYTOIN 100 MG/4 ML UDC (DILANTIN) GT SCH ×3 (09:58→21:02)
[2022-12-17] MEDS: FERROUS SULFATE 325 MG TABLET.DR GT SCH ×2 (09:59→21:04)
[2022-12-17] MEDS: levETIRAcetam 500 MG TABLET GT SCH ×2 (10:00→21:04)
[2022-12-17] MEDS: LANSOPRAZOLE 30 MG CAPSULE.DR GT SCH (10:00)
[2022-12-17] MEDS: METOPROLOL TARTRATE 50 MG TABLET GT SCH ×2 (10:00→21:03)
[2022-12-17] MEDS: HEPARIN SODIUM,PORCINE 5,000 UNITS/ML VIAL SUBCUT SCH ×2 (10:04→21:06)
[2022-12-17] MEDS: lisinopriL 20 MG TABLET GT SCH (10:07)
[2022-12-17 11:24] VITALS: BP_SYST 115
[2022-12-17] MEDS: NACL 0.9% 1,000 ML IV SCH (12:21)
--- NOTE | 2022-12-17 13:55 | NUR ---
Dietitian Recommendations * Modify TF prescription: Glucerna 1.2 at 65 ml/hr (goal rate) x24 hr, Free Water Flush: 150 ml Q4h via GT Provides: 1872 kcal/day, 94 gm protein/day, and 2156 ml free water/day Meets: 91% of lower end of estimated caloric needs, 96% of upper end of estimated protein needs, and 86% of upper end of estimated fluid needs LP, MS, RD Please refer to Nutrition Assessment for details. Addendum: 12/17/22 at [address]as RD Amended: Links added.
[2022-12-17 15:26] VITALS: BP_SYST 121
[2022-12-17 15:30] LABS: BILIRUBIN,URINE NEGATIVE (NEGATIVE); BLOOD, URINE NEGATIVE (NEGATIVE); CLARITY/URINE CLEAR (CLEAR); COLOR,URINE YELLOW (YELLOW); GLUCOSE,URINE NEGATIVE (NEGATIVE); KETONES,URINE NEGATIVE (NEGATIVE); NITRITE, URINE NEGATIVE (NEGATIVE); PH,URINE 6.5 (5.0-8.0); PROTEIN URINE TRACE (NEGATIVE)
[2022-12-17 15:49] LABS: LEUKOCYTE ESTERASE ,URINE NEGATIVE (NEGATIVE)
[2022-12-17 15:51] LABS: BACTERIA,URINE None Seen /HPF (None Seen); MUCUS,URINE None Seen /LPF (None Seen); RBC,URINE NONE SEEN /HPF (0-3); WBC,URINE 0-3 /HPF (0-3)
--- NOTE | 2022-12-17 18:37 | NUR ---
K LEVELIS3.4, GIVEN PRN K.
--- NOTE | 2022-12-17 19:30 | NUR ---
OPENING NOTES Patient resting in bed - no s/s pain or distress noted. Respirations even and unlabored. Head of bed elevated - IV site patent. No s/s redness infection or infiltration. Bed locked and in lowest position. Call light within reach. Bed alarm on.
--- NOTE | 2022-12-17 19:33 | NUR ---
PT HAS BEEN STABLE THE WHOLE SHIFT. NO FEVER NO RESP DISTRESS,CONTINUED TO BE ON 2L PER NC. INCONTINENT OF URINE AND BOWELS. CLEANSED AND REPOSITIONED. FEEDING RATE CHANGED PER CARTON PACKAGING MACHINE OPERATOR. ENDORSED BOB SIERRA.
[2022-12-17 20:00] VITALS: BP_SYST 135
[2022-12-17] MEDS: DONEPEZIL HCL 5 MG TABLET (ARICEPT) GT SCH (21:03)
[2022-12-18] VITALS: BP_SYST 140
[2022-12-18] MEDS: NACL 0.9% 1,000 ML IV SCH ×2 (03:11→17:27)
[2022-12-18] MEDS: PIPERACILLIN/TAZO 3.375 GM in NS 50 ML IV SCH ×3 (06:39→22:04)
--- NOTE | 2022-12-18 07:09 | NUR ---
blood sugar 122
--- NOTE | 2022-12-18 07:47 | NUR ---
CLOSING NOTES Patient resting in bed - no s/s pain or distress noted. Respirations even and unlabored. Head of bed elevated - IV site patent. No s/s redness infection or infiltration. Bed locked and in lowest position. Call light within reach. Bed alarm on. endorsed to dax WILLSON to notify dr. du of low blood sugar 57 critical lab
[2022-12-18 07:49] LABS: BASOPHILS % (AUTO) 0.1 % (0.0-2.0); EOSINOPHILS % (AUTO) 0.2 % (0.0-4.0); HEMATOCRIT 41.6 % (36-54); HEMOGLOBIN 13.8 g/dL (14.0-18.0); LYMPHOCYTES # (AUTO) 0.6 K/uL (1.0-5.5); LYMPHOCYTES % (AUTO) 4.4 % (20.5-51.5); MEAN CORPUSCULAR HEMOGLOBIN 30 pg (27-31); MEAN CORPUSCULAR HGB CONC 33 % (32-36); MEAN CORPUSCULAR VOLUME 90 fL (79.0-98.0); MONOCYTES # (AUTO) 0.8 K/uL (0.0-1.0); MONOCYTES % (AUTO) 6.1 % (1.7-9.3); NEUTROPHILS # (AUTO) 11.7 K/uL (1.8-7.7); NEUTROPHILS % (AUTO) 89.2 % (40.0-70.0); PLATELET COUNT (AUTO) 149 K/uL (130-430); RED BLOOD CELL COUNT(AUTO) 4.64 MIL/uL (4.2-6.2); RED CELL DISTRIBUTION WIDTH 13.7 % (9.0-15.0); WHITE BLOOD COUNT (AUTO) 13.1 K/uL (4.8-10.8)
--- NOTE | 2022-12-18 07:49 | NUR ---
opening notes: patient in bed having labs drawn. no s/s of distress or pain noted. breathing is even and unlabored on 2l nc 100%. overlock waistline joiner nurse bernarda notified me that the patient had a hypoglycemic event this morning. patient blood sugar was 57. d50 syringe was administered by night nurse and blood sugar was then at 122. rechecked patient blood sugar while doing vital signs and blood sugar is at 112. tube feeding is running at prescribed rate. updated patient board. safety checks made, seizure precautions in place and call light within reach.
[2022-12-18 07:55] LABS: CALCIUM 7.9 mg/dL (8.4-11.0); CREATININE 0.66 mg/dL (0.55-1.30)
[2022-12-18 08:00] VITALS: BP_SYST 128
--- NOTE | 2022-12-18 08:07 | NUR ---
MRSA SCREEN COLLECTED AND SENT TO LAB
[2022-12-18] MEDS: ASPIRIN 81 MG TAB.CHEW GT SCH (09:11)
[2022-12-18] MEDS: PHENYTOIN 100 MG/4 ML UDC (DILANTIN) GT SCH ×3 (09:11→22:05)
[2022-12-18] MEDS: FERROUS SULFATE 325 MG TABLET.DR GT SCH ×2 (09:12→22:05)
[2022-12-18] MEDS: LANSOPRAZOLE 30 MG CAPSULE.DR GT SCH (09:12)
[2022-12-18] MEDS: levETIRAcetam 500 MG TABLET GT SCH ×2 (09:12→22:05)
[2022-12-18] MEDS: lisinopriL 20 MG TABLET GT SCH (09:14)
[2022-12-18] MEDS: METOPROLOL TARTRATE 50 MG TABLET GT SCH ×2 (09:14→22:05)
[2022-12-18] MEDS: HEPARIN SODIUM,PORCINE 5,000 UNITS/ML VIAL SUBCUT SCH ×2 (09:18→22:07)
--- NOTE | 2022-12-18 10:30 | NUR ---
GAVE PATIENT BED BATH WITH PRECISION MACHINING INSTRUCTOR. CHANGED ALL LINENS AND GOWN. APPLIED Z-GUARD TO MAT- AREA AND FOAM DRESSING TO SACRUM. REPOSITIONED PATIENT WITH PILLOW SUPPORT. SAFETY CHECKS MADE, SEIZURE PRECAUTIONS IN PLACE AND CALL LIGHT WITHIN REACH.
[2022-12-18 11:20] VITALS: BP_SYST 108
[2022-12-18 15:17] VITALS: BP_SYST 137
[2022-12-18] MEDS: INSULIN LISPRO SLIDING SCALE 100 UNITS/ML, 3 ML VIAL (humaLOG) SUBCUT PRN ×2 (17:40→22:14)
--- NOTE | 2022-12-18 18:44 | NUR ---
CLOSING NOTES: PATIENT IN BED. REQUESTED TO HAVE HIS TV TURNED ON. NO S/S OF DISTRESS OR PAIN REPORTED. BREATHING IS EVEN AND UNLABORED ON RA 2L NC 96%. G-TUBE FEEDING RUNNING PRESCRIBED. ALL NEEDS MET AT THIS TIME, SEIZURE PRECAUTIONS IN PLACE, SAFETY CHECKS MADE AND CALL LIGHT WITHIN REACH. WILL ENDORSE TO RECREATIONAL DIRECTOR NURSE.
[2022-12-18 20:00] VITALS: BP_SYST 154
[2022-12-18] MEDS: DONEPEZIL HCL 5 MG TABLET (ARICEPT) GT SCH (22:05)
[2022-12-19] VITALS: BP_SYST 123
[2022-12-19] MEDS: PIPERACILLIN/TAZO 3.375 GM in NS 50 ML IV SCH ×3 (05:22→21:14)
[2022-12-19] MEDS: INSULIN LISPRO SLIDING SCALE 100 UNITS/ML, 3 ML VIAL (humaLOG) SUBCUT PRN ×3 (06:18→21:21)
--- NOTE | 2022-12-19 07:49 | NUR ---
OPENING NOTES: PATIENT IN BED WITH EYES CLOSED. RESPONDED TO NAME. NO S/S OF DISTRESS OR PAIN REPORTED. BREATHING IS EVEN AND UNLABORED ON 2L NC 96%. SAFETY CHECKS MADE, SEIZURE PRECAUTIONS IN PLACE AND CALL LIGHT WITHIN REACH.
[2022-12-19 08:00] VITALS: BP_SYST 141
[2022-12-19 08:17] LABS: BASOPHILS % (AUTO) 0.4 % (0.0-2.0); EOSINOPHILS # (AUTO) 0.2 K/uL (0.0-0.4); EOSINOPHILS % (AUTO) 2.3 % (0.0-4.0); HEMATOCRIT 40.1 % (36-54); HEMOGLOBIN 13.6 g/dL (14.0-18.0); LYMPHOCYTES # (AUTO) 1.1 K/uL (1.0-5.5); LYMPHOCYTES % (AUTO) 15.6 % (20.5-51.5); MEAN CORPUSCULAR HEMOGLOBIN 30 pg (27-31); MEAN CORPUSCULAR HGB CONC 34 % (32-36); MEAN CORPUSCULAR VOLUME 89 fL (79.0-98.0); MONOCYTES # (AUTO) 0.5 K/uL (0.0-1.0); MONOCYTES % (AUTO) 7.6 % (1.7-9.3); NEUTROPHILS # (AUTO) 5.2 K/uL (1.8-7.7); NEUTROPHILS % (AUTO) 74.1 % (40.0-70.0); PLATELET COUNT (AUTO) 151 K/uL (130-430); RED CELL DISTRIBUTION WIDTH 13.6 % (9.0-15.0)
[2022-12-19 08:31] LABS: CALCIUM 7.6 mg/dL (8.4-11.0); CREATININE 0.58 mg/dL (0.55-1.30)
[2022-12-19 08:47] VITALS: BP_SYST 141
[2022-12-19] MEDS: LANSOPRAZOLE 30 MG CAPSULE.DR GT SCH (09:07)
[2022-12-19] MEDS: FERROUS SULFATE 325 MG TABLET.DR GT SCH ×2 (09:08→21:15)
[2022-12-19] MEDS: METOPROLOL TARTRATE 50 MG TABLET GT SCH ×2 (09:08→21:15)
[2022-12-19] MEDS: levETIRAcetam 500 MG TABLET GT SCH ×2 (09:08→21:15)
[2022-12-19] MEDS: lisinopriL 20 MG TABLET GT SCH (09:08)
[2022-12-19] MEDS: ASPIRIN 81 MG TAB.CHEW GT SCH (09:08)
[2022-12-19] MEDS: PHENYTOIN 100 MG/4 ML UDC (DILANTIN) GT SCH ×3 (09:09→21:16)
[2022-12-19] MEDS: HEPARIN SODIUM,PORCINE 5,000 UNITS/ML VIAL SUBCUT SCH ×2 (09:11→21:21)
[2022-12-19] MEDS: NACL 0.9% 1,000 ML IV SCH (09:13)
--- NOTE | 2022-12-19 09:43 | NUR ---
Nutrition F/U RD reviewed pts current EMR including diet hx, physician notes, nursing notes, pertinent labs/meds/procedures, care trends and care activity. Subjective Information RD rounded to pt room and pt was sleeping. RD witnessed that TF was off and called PRESIDING JUDGE to let her know. She said it was d/t medication timing and she will turn it back on at 1030. She said pt is tolerating TF formula well, just checked GRV and there was none. Per EMR review: abd soft, non-distended w/ active bowel sounds; low GRV (under 30mL since 12/16); Garry: 13 w/ erythema on buttocks, groin and scrotum; LABS: BG 196 H, AIC 6.59 H. Pt is likely meeting nutritional needs at this time. Current Diet Order/Nutrition Support Glucerna 1.2 @ 65mL/hr, FWF 150mL q4h via GT x 2 days % PO intake N/A Last BM 12/19 x 1 Estimated Energy Expenditure (kcals/day) 6757-0023 (25-30 kcal/kg CBW for adult maintenance) Estimated Protein Required (g/day) 82-98 (1-1.2 gm/kg CBW for adult maintenance, enhance muscle preservation) Estimated Fluid Required (l/day) 2-2.5 (1 ml/kcal/day for adult maintenance) Problem/Etiology/Signs/Symptoms Suboptimal EN support R/T adult maintenance AEB current TF prescription meets 94% of lower end of estimated caloric needs, 117% of upper end of estimated protein needs, and 79% of lower end of estimated fluid needs. *resolved Altered nurition-related labs R/T endocrine dysfunction AEB elevated BG and HgA1c lab values. * ongoing Expected Outcomes/Goals - Monitor tolerance to EN support w/ goal of pt meeting 80-100% of estimated nutritional needs, labs trending WNL, normal GI function, and skin integrity/wt maintenance Dietitian Recommendations * Continue Glucerna 1.2 at 65 ml/hr (goal rate) x24 hr, Free Water Flush: 150 ml Q4h via GT Provides: 1872 kcal/day, 94 gm protein/day, and 2156 ml free water/day Meets: 91% of lower end of estimated caloric needs, 96% of upper end of estimated protein needs, and 86% of upper end of estimated fluid needs Follow up * Moderate risk: f/u in 3-5 days GS, MPH, RD
--- NOTE | 2022-12-19 09:44 | NUR ---
Dietitian Recommendations * Continue Glucerna 1.2 at 65 ml/hr (goal rate) x24 hr, Free Water Flush: 150 ml Q4h via GT Provides: 1872 kcal/day, 94 gm protein/day, and 2156 ml free water/day Meets: 91% of lower end of estimated caloric needs, 96% of upper end of estimated protein needs, and 86% of upper end of estimated fluid needs GS, MPH, RD Please refer to Nutrition F/U for further details. Thanks!
[2022-12-19 11:17] VITALS: BP_SYST 134
[2022-12-19 15:20] VITALS: BP_SYST 149
[2022-12-19] MEDS: PEG 400/HYPROMELLOSE/GLYCERIN 15 ML DROPS OP PRN (17:06)
--- NOTE | 2022-12-19 18:56 | NUR ---
CLOSING NOTES: PATIENT IN BED WATCHING TV. NO S/S OF DISTRESS OR PAIN NOTED. BREATHING IS EVEN AND UNLABORED ON RA 2L NC 96%. G-TUBE FEEDING RUNNING PRESCRIBED. SEIZURE PRECAUTIONS IN PLACE, SAFETY CHECKS MADE AND CALL LIGHT WITHIN REACH. WILL ENDORSE TO SITE MEDICAL DIRECTOR NURSE.
[2022-12-19 20:00] VITALS: BP_SYST 145
--- NOTE | 2022-12-19 20:00 | NUR ---
Opening notes/IV restart Pt awake, non-verbal, no s/s distress noted. VSS, afebrile. Pt pulled out IV holding it with hand, catheter tip intact, no active bleeding. IV restarted on L. FA 22G good blood return. IVF resumed at ordered rate. GT feeding held prior to Dilantin dose. HOB maintained elevated. Safety maintained. To monitor.
[2022-12-19] MEDS: DONEPEZIL HCL 5 MG TABLET (ARICEPT) GT SCH (21:14)
[2022-12-19] MEDS: KETOCONAZOLE 2%, 60 GM TOPICAL CREAM. (NIZORAL) TP SCH (21:16)
[2022-12-20] MEDS: NACL 0.9% 1,000 ML IV SCH ×3 (00:09→17:39)
[2022-12-20 01:24] VITALS: BP_SYST 137
[2022-12-20 04:43] LABS: BASOPHILS % (AUTO) 0.5 % (0.0-2.0); EOSINOPHILS # (AUTO) 0.2 K/uL (0.0-0.4); EOSINOPHILS % (AUTO) 2.8 % (0.0-4.0); HEMATOCRIT 40.9 % (36-54); HEMOGLOBIN 13.8 g/dL (14.0-18.0); LYMPHOCYTES # (AUTO) 1.4 K/uL (1.0-5.5); LYMPHOCYTES % (AUTO) 22.4 % (20.5-51.5); MEAN CORPUSCULAR HEMOGLOBIN 30 pg (27-31); MEAN CORPUSCULAR HGB CONC 34 % (32-36); MEAN CORPUSCULAR VOLUME 89 fL (79.0-98.0); MONOCYTES # (AUTO) 0.4 K/uL (0.0-1.0); MONOCYTES % (AUTO) 7.3 % (1.7-9.3); NEUTROPHILS # (AUTO) 4.1 K/uL (1.8-7.7); PLATELET COUNT (AUTO) 168 K/uL (130-430); RED CELL DISTRIBUTION WIDTH 13.3 % (9.0-15.0); WHITE BLOOD COUNT (AUTO) 6.2 K/uL (4.8-10.8)
[2022-12-20 04:43] LABS: ALBUMIN 2.6 g/dL (3.4-4.8); CREATININE 0.57 mg/dL (0.55-1.30); TOTAL BILIRUBIN 0.3 mg/dL (0.0-1.0)
--- NOTE | 2022-12-20 06:10 | NUR ---
Closing notes Pt asleep, easily awakens, no s/s distress noted. O2 to wean. IVF/IV antibiotic infusing at ordered rate L. FA clear and patent. New bottle of GT feeding Glucerna hung at 65cc/hr, free water flushes given. Call light within reach. Seizure/Aspiration precautions maintained. Incontinence care provided. To endorse to AM nurse
[2022-12-20] MEDS: PIPERACILLIN/TAZO 3.375 GM in NS 50 ML IV SCH (06:14)
[2022-12-20] MEDS: INSULIN LISPRO SLIDING SCALE 100 UNITS/ML, 3 ML VIAL (humaLOG) SUBCUT PRN ×3 (06:16→21:56)
--- NOTE | 2022-12-20 07:30 | NUR ---
MORNING ROUNDS: PATIENT AWAKE DURING ROUNDS. MUMBLES ,NON VERBAL BUT ABLE TO POINT HIS LEFT FINGERS TO NEEDS. ROOM AIR,GOOD SATURATION. TUBE FEEDS ON GOING.BILATERAL PADDED SIDE RAILS ON FOR SEIZURES PRECAUTION.CALL LIGHT WITH IN REACH. BED LOCKED AT LOWEST POSITION. NO ACUTE DISTRESS.
[2022-12-20 08:16] VITALS: BP_SYST 141
[2022-12-20] MEDS: FERROUS SULFATE 325 MG TABLET.DR GT SCH ×2 (08:35→21:48)
[2022-12-20] MEDS: levETIRAcetam 500 MG TABLET GT SCH ×2 (08:35→21:50)
[2022-12-20] MEDS: PHENYTOIN 100 MG/4 ML UDC (DILANTIN) GT SCH ×3 (08:35→21:51)
[2022-12-20] MEDS: ASPIRIN 81 MG TAB.CHEW GT SCH (08:36)
[2022-12-20] MEDS: METOPROLOL TARTRATE 50 MG TABLET GT SCH ×2 (08:36→21:48)
[2022-12-20] MEDS: lisinopriL 20 MG TABLET GT SCH (08:37)
[2022-12-20] MEDS: LANSOPRAZOLE 30 MG CAPSULE.DR GT SCH (08:37)
[2022-12-20] MEDS: HEPARIN SODIUM,PORCINE 5,000 UNITS/ML VIAL SUBCUT SCH ×2 (08:39→21:50)
[2022-12-20] MEDS: KETOCONAZOLE 2%, 60 GM TOPICAL CREAM. (NIZORAL) TP SCH ×2 (09:42→21:49)
[2022-12-20 11:32] VITALS: BP_SYST 139
--- NOTE | 2022-12-20 11:35 | NUR ---
FAMILY AT BEDSIDE: FAMILY AT THE BEDSIDE UPDATES GIVEN.
[2022-12-20] MEDS: MUPIROCIN 2% TOPICAL OINTMENT 22 GM NS SCH ×2 (12:02→21:49)
[2022-12-20] MEDS: PEG 400/HYPROMELLOSE/GLYCERIN 15 ML DROPS OP PRN (12:02)
--- NOTE | 2022-12-20 12:02 | NUR ---
CONTACT ISOLATION: PUT PATIENT ON CONTACT ISOLATION FOR MRSA NARES ORDERED.STARTED ON BACTROBAN OINTMENT ON THE NARES ORDERED.
--- NOTE | 2022-12-20 13:14 | NUR ---
CM: received bed from [facility], room # 213 C.
--- NOTE | 2022-12-20 13:48 | NUR ---
CM: Ambulance: called [facility], provider line for contracted ambulance and auth # [id number] [id number] opt 3. Per Dorota, the assigned CM will call back with the ambulance set up info in 1-2 hr. Dorota made aware that this is a stat request, pt is ready to go back to [facility] today. It will be a delayed authorization if no call back from the insurance. Addendum: 12/20/22 at 1606 by Arthur Fink RN F/U ambulance auth: called Janine Arthur auth dept x2, unable to leave message, mail box is full. I faxed the order and ambulance auth request to fax # [phone] marked " Urgent " . Addendum: 12/20/22 at 1626 by Arthur Fink RN [facility] [employer]/ Provider line # [phone].
[2022-12-20 15:30] VITALS: BP_SYST 141
--- NOTE | 2022-12-20 18:41 | NUR ---
END OF SHIFT: STILL WAITING FOR TRANSPORT AUTHORIZATION. PATIENT RESTING. TUBE FEEDS ON GOING. LEFT ARM IV FLUIDS ON GOING. BED LOCKED AT LOWEST POSITION. CONTINUE TO MONITOR.SAFETY MEASURES RENDERED.
--- NOTE | 2022-12-20 20:00 | NUR ---
OPENING Patient resting in bed, unlabored breathing on room air, no s/s distress noted. Contact isolation in place. Tube feeding and IV fluids infusing as ordered. Safety precautions in place.
[2022-12-20 20:45] VITALS: BP_SYST 152
[2022-12-20] MEDS: DONEPEZIL HCL 5 MG TABLET (ARICEPT) GT SCH (21:48)
--- NOTE | 2022-12-20 22:00 | NUR ---
NOTES Patient had bowel movement. Gown and linens changed. Medications administered. G-tube flushing well, no residual.
[2022-12-21 00:19] VITALS: BP_SYST 142
[2022-12-21 04:41] LABS: BASOPHILS % (AUTO) 0.5 % (0.0-2.0); EOSINOPHILS # (AUTO) 0.2 K/uL (0.0-0.4); EOSINOPHILS % (AUTO) 3.1 % (0.0-4.0); HEMATOCRIT 41.8 % (36-54); HEMOGLOBIN 14.3 g/dL (14.0-18.0); LYMPHOCYTES # (AUTO) 1.5 K/uL (1.0-5.5); LYMPHOCYTES % (AUTO) 23.3 % (20.5-51.5); MEAN CORPUSCULAR HEMOGLOBIN 30 pg (27-31); MEAN CORPUSCULAR HGB CONC 34 % (32-36); MEAN CORPUSCULAR VOLUME 88 fL (79.0-98.0); MONOCYTES # (AUTO) 0.4 K/uL (0.0-1.0); MONOCYTES % (AUTO) 6.8 % (1.7-9.3); NEUTROPHILS # (AUTO) 4.4 K/uL (1.8-7.7); NEUTROPHILS % (AUTO) 66.3 % (40.0-70.0); PLATELET COUNT (AUTO) 193 K/uL (130-430); RED BLOOD CELL COUNT(AUTO) 4.74 MIL/uL (4.2-6.2); RED CELL DISTRIBUTION WIDTH 13.2 % (9.0-15.0); WHITE BLOOD COUNT (AUTO) 6.6 K/uL (4.8-10.8)
[2022-12-21 04:54] LABS: CALCIUM 8.1 mg/dL (8.4-11.0); CREATININE 0.53 mg/dL (0.55-1.30)
[2022-12-21] MEDS: INSULIN LISPRO SLIDING SCALE 100 UNITS/ML, 3 ML VIAL (humaLOG) SUBCUT PRN ×2 (06:33→11:42)
[2022-12-21] MEDS: NACL 0.9% 1,000 ML IV SCH (06:35)
--- NOTE | 2022-12-21 07:24 | NUR ---
CLOSING Patient stable through night, no s/s distress noted. Tube feeding and IV fluids infusing as ordered. Turned and repositioned. Oral suction provided as needed. Aspiration and safety precautions in place. Endorsed to oncoming nurse.
--- NOTE | 2022-12-21 07:30 | NUR ---
MORNING ROUNDS: PATIENT SLEEPING DURING ROUNDS,ON AIR LOSS MATTRESS BED. MAINTAINED ON CONTACT ISOLATION FOR MRSA NARES. WAITING FOR TRANSPORTATION AUTHORIZATION. MD AWARE. IV FLUIDS RUNNING AT LEFT FOREARM INTACT. TUBE FEEDS ON GOING. BED LOCKED AT LOWEST POSITION. STABLE.
[2022-12-21 08:00] VITALS: BP_SYST 154
[2022-12-21] MEDS: FERROUS SULFATE 325 MG TABLET.DR GT SCH (09:21)
[2022-12-21] MEDS: PHENYTOIN 100 MG/4 ML UDC (DILANTIN) GT SCH ×2 (09:21→15:10)
[2022-12-21] MEDS: LANSOPRAZOLE 30 MG CAPSULE.DR GT SCH (09:21)
[2022-12-21] MEDS: lisinopriL 20 MG TABLET GT SCH (09:22)
[2022-12-21] MEDS: METOPROLOL TARTRATE 50 MG TABLET GT SCH (09:22)
[2022-12-21] MEDS: levETIRAcetam 500 MG TABLET GT SCH (09:22)
[2022-12-21] MEDS: MUPIROCIN 2% TOPICAL OINTMENT 22 GM NS SCH (09:24)
[2022-12-21] MEDS: HEPARIN SODIUM,PORCINE 5,000 UNITS/ML VIAL SUBCUT SCH (09:24)
[2022-12-21] MEDS: KETOCONAZOLE 2%, 60 GM TOPICAL CREAM. (NIZORAL) TP SCH (09:26)
[2022-12-21] MEDS: ASPIRIN 81 MG TAB.CHEW GT SCH (09:34)
--- NOTE | 2022-12-21 11:03 | NUR ---
CALLED FOR AUTH FOR TRANSPORTION NO WORD FOR CM. HERNANDEZ.
[2022-12-21 12:47] VITALS: BP_SYST 148
--- NOTE | 2022-12-21 14:12 | NUR ---
Patient to transfer to [facility] room 120B-number for report [phone]. Ambulance transport by [facility] [phone] Reference # for the transport [id number]- they will call with a transport time.
--- NOTE | 2022-12-21 15:35 | NUR ---
REPORT : REPORT GIVEN TO CHANELL ANN FROM [facility].
[2022-12-21 15:36] VITALS: BP_SYST 134
[2022-12-21 16:00] VITALS: BP_SYST 134
--- NOTE | 2022-12-21 16:00 | NUR ---
DISCHARGE NOTES: TRANSFER PACKETS GIVEN TO [facility].IV KEPT,WITH ORDERS TO CONTINUE IV LEVAQUIN UNTIL 12-23-22.TUBE FEED CLAMPED. DNR STATUS.PATIENT WAS TRANSPORTED TO [facility] IN STABLE CONDITION.
== END 2022-12-21 16:00 | DRG 720 ==
LOC: SED 05:12 → STU 07:47 → SMU 12-20 23:10
PROVIDERS: ADMIT General Practice; ATTEND General Practice
PROC: 4A00X4Z Measurement of Central Nervous Electrical Activity, External Approach (ICD-10-PCS; principal; 2022-12-16)
DX: A41.9 Sepsis, unspecified organism (principal); J96.01 Acute respiratory failure with hypoxia; J69.0 Pneumonitis due to inhalation of food and vomit; G93.41 Metabolic encephalopathy; G82.20 Paraplegia, unspecified; I10 Essential (primary) hypertension; G40.909 Epilepsy, unspecified, not intractable, without status epilepticus; G30.9 Alzheimer's disease, unspecified; F02.80 Dementia in other diseases classified elsewhere, unspecified severity, without behavioral disturbance, psychotic disturbance, mood disturbance, and anxiety; E78.5 Hyperlipidemia, unspecified; E11.65 Type 2 diabetes mellitus with hyperglycemia; K21.9 Gastro-esophageal reflux disease without esophagitis; G90.8 Other disorders of autonomic nervous system; Z66 Do not resuscitate; I69.391 Dysphagia following cerebral infarction; I69.351 Hemiplegia and hemiparesis following cerebral infarction affecting right dominant side; Z79.899 Other long term (current) drug therapy; Z93.1 Gastrostomy status
CPT/HCPCS: 36415; 71045; 80048; 80053; 80185; 81000; 83037; 83735; 85025; 87040; 87081; 93005; 94640; 94760; 95816; 96361; 96374; 96375; 99285; G0378; J1644; J1953; J1956; J2405; J2543; J3370; J7050; J7613

== ENCOUNTER 2023-06-20 20:30 | Inpatient (IN) | payer BC ==
[~2023-06-20] VITALS: Ht 180.3 cm; Wt 76.4 kg
[~2023-06-20 20:30] MED LIST changes: -PHEN100O4 GT
[2023-06-20 21:00] VITALS: BP_SYST 137; PULSE 88; RESP 18; TEMP 98.3; O2SAT 98
[2023-06-20] MEDS ORDERED: levETIRAcetam 1,000 MG in NS 90 ML IV ONE (21:00)
[2023-06-20 22:05] LABS: BASOPHILS % (AUTO) 0.1 % (0.0-2.0); HEMATOCRIT 46.6 % (36-54); LYMPHOCYTES # (AUTO) 0.9 K/uL (1.0-5.5); LYMPHOCYTES % (AUTO) 4.8 % (20.5-51.5); MEAN CORPUSCULAR HEMOGLOBIN 28 pg (27-31); MEAN CORPUSCULAR HGB CONC 32 % (32-36); MEAN CORPUSCULAR VOLUME 87 fL (79.0-98.0); MONOCYTES # (AUTO) 0.6 K/uL (0.0-1.0); MONOCYTES % (AUTO) 3.1 % (1.7-9.3); NEUTROPHILS # (AUTO) 16.6 K/uL (1.8-7.7); PLATELET COUNT (AUTO) 213 K/uL (130-430); RED BLOOD CELL COUNT(AUTO) 5.38 MIL/uL (4.2-6.2)
[2023-06-20 22:26] LABS: ALBUMIN 3.3 g/dL (3.4-4.8); CALCIUM 9.2 mg/dL (8.4-11.0); CREATININE 0.93 mg/dL (0.55-1.30); POTASSIUM 4.1 mmol/L (3.5-5.1); TOTAL BILIRUBIN 0.5 mg/dL (0.0-1.0); TOTAL PROTEIN, SERUM 7.8 g/dL (6.4-8.3)
[2023-06-21 01:03] LABS: BILIRUBIN,URINE NEGATIVE (NEGATIVE); BLOOD, URINE NEGATIVE (NEGATIVE); COLOR,URINE YELLOW (YELLOW); GLUCOSE,URINE NEGATIVE (NEGATIVE); KETONES,URINE TRACE (NEGATIVE); LEUKOCYTE ESTERASE ,URINE TRACE (NEGATIVE); NITRITE, URINE NEGATIVE (NEGATIVE); PROTEIN URINE TRACE (NEGATIVE); UROBILINOGEN,URINE 0.2 (0.2-1.0)
[2023-06-21 01:29] LABS: CLARITY/URINE SLIGHTLY CLOUDY (CLEAR)
[2023-06-21 01:31] LABS: BACTERIA,URINE FEW /HPF (None Seen); RBC,URINE 0-3 /HPF (0-3)
[2023-06-21] MEDS ORDERED: cefTRIAXone 1 GM IVPB PREMIX 50 ML IV ONE (02:00)
[2023-06-21] MEDS ORDERED: ACET-73 GT (03:07)
[2023-06-21] MEDS ORDERED: BISA10SU61 RC (03:11)
[2023-06-21] MEDS ORDERED: LIP20 GT (03:15)
[2023-06-21] MEDS ORDERED: MOM GT (03:19)
[2023-06-21] MEDS ORDERED: SENN8.6T19 GT (03:29)
[2023-06-21] MEDS ORDERED: FERROUS SULF GT (03:29)
[2023-06-21] MEDS ORDERED: LEVE1000 GT (03:33)
[2023-06-21 04:00] VITALS: BP_SYST 148; PULSE 72; RESP 16; TEMP 97.8; O2SAT 98
[2023-06-21] MEDS ORDERED: ONDANSETRON HCL 4 MG/2 ML VIAL IVP PRN (07:30)
[2023-06-21] MEDS ORDERED: MORPHINE 2 MG/ML INJ. SYRINGE IVP PRN ×2 (07:30)
[2023-06-21] MEDS ORDERED: DEXTROSE 50% JECT 50 ML DISP.SYRIN IVP PRN (07:30)
[2023-06-21] MEDS ORDERED: ZOLPIDEM TARTRATE 5 MG TABLET PO PRN (07:30)
[2023-06-21] MEDS ORDERED: POTASSIUM CHLORIDE 20 MEQ TABLET.ER PO PRN (07:30)
[2023-06-21] MEDS ORDERED: MAGNESIUM SULFATE 50 ML IV PRN (07:30)
[2023-06-21] MEDS ORDERED: ACETAMINOPHEN 325 MG TABLET PO PRN ×3 (07:30→08:45)
[2023-06-21] MEDS ORDERED: MUPIROCIN 2% TOPICAL OINTMENT 22 GM NS PRN (07:30)
[2023-06-21] MEDS ORDERED: INSULIN LISPRO SLIDING SCALE 100 UNITS/ML, 3 ML VIAL (humaLOG) SUBCUT PRN (07:30)
[2023-06-21] MEDS ORDERED: LORazepam 2 MG/ML VIAL IVP PRN (07:30)
[2023-06-21] MEDS ORDERED: DOCUSATE SODIUM 100 MG CAPSULE PO PRN (07:30)
[2023-06-21] MEDS ORDERED: NALOXONE HCL 0.4 MG/ML AMP (NARCAN) IVP PRN ×2 (07:30)
[2023-06-21 08:00] VITALS: BP_SYST 152; PULSE 67; RESP 16; TEMP 96.4; O2SAT 99
[2023-06-21] MEDS ORDERED: FERR220S9 PO (08:59)
[2023-06-21] MEDS ORDERED: METF-381 GT (08:59)
[2023-06-21] MEDS ORDERED: cefTRIAXone 1 GM in D5W 50 ML IV SCH ×2 (09:00→21:00)
[2023-06-21 09:56] LABS: BASOPHILS # (AUTO) 0.1 K/uL (0.0-0.2); BASOPHILS % (AUTO) 0.4 % (0.0-2.0); EOSINOPHILS # (AUTO) 0.1 K/uL (0.0-0.4); EOSINOPHILS % (AUTO) 1.1 % (0.0-4.0); HEMATOCRIT 47.1 % (36-54); HEMOGLOBIN 15.3 g/dL (14.0-18.0); LYMPHOCYTES # (AUTO) 2.3 K/uL (1.0-5.5); LYMPHOCYTES % (AUTO) 19.1 % (20.5-51.5); MEAN CORPUSCULAR HEMOGLOBIN 28 pg (27-31); MEAN CORPUSCULAR HGB CONC 33 % (32-36); MEAN CORPUSCULAR VOLUME 87 fL (79.0-98.0); MONOCYTES % (AUTO) 8.2 % (1.7-9.3); NEUTROPHILS # (AUTO) 8.6 K/uL (1.8-7.7); NEUTROPHILS % (AUTO) 71.2 % (40.0-70.0); PLATELET COUNT (AUTO) 169 K/uL (130-430); RED BLOOD CELL COUNT(AUTO) 5.42 MIL/uL (4.2-6.2); RED CELL DISTRIBUTION WIDTH 14.2 % (9.0-15.0); WHITE BLOOD COUNT (AUTO) 12.1 K/uL (4.8-10.8)
[2023-06-21] MEDS: glipiZIDE XL 5 MG TAB ( GLUCOTROL XL) PO SCH (10:22)
[2023-06-21] MEDS: FERROUS SULFATE 325 MG TABLET.DR GT SCH ×2 (10:22→20:35)
[2023-06-21] MEDS: METOPROLOL TARTRATE 50 MG TABLET GT SCH ×2 (10:23→20:34)
[2023-06-21] MEDS: ASPIRIN 81 MG TAB.CHEW GT SCH (10:23)
[2023-06-21] MEDS: ATORVASTATIN 20 MG TABLET GT SCH (10:23)
[2023-06-21] MEDS: ASCORBIC ACID 500 MG TABLET GT SCH (10:23)
[2023-06-21] MEDS: lisinopriL 20 MG TABLET GT SCH (10:24)
[2023-06-21] MEDS: MEMANTINE HCL 5 MG TABLET GT SCH ×2 (10:24→20:34)
[2023-06-21] MEDS: HEPARIN SODIUM,PORCINE 5,000 UNITS/ML VIAL SUBCUT SCH ×2 (10:25→20:36)
[2023-06-21] MEDS: LevETIRAcetam 500 MG/5 ML UDC ORAL LIQUID GT SCH ×2 (10:30→20:34)
[2023-06-21 11:26] VITALS: BP_SYST 150; PULSE 82; RESP 16; TEMP 97.7; O2SAT 99
[2023-06-21 15:16] VITALS: BP_SYST 159; PULSE 81; RESP 16; TEMP 97.8; O2SAT 95
[2023-06-21 20:00] VITALS: BP_SYST 149; PULSE 65; RESP 16; TEMP 97.9; O2SAT 97
[2023-06-21 20:15] VITALS: O2SAT 97
[2023-06-21] MEDS ORDERED: DONEPEZIL HCL 5 MG TABLET (ARICEPT) GT SCH (21:00)
[2023-06-21] MEDS ORDERED: FENOFIBRATE 160 MG TABLET GT SCH (21:00)
[2023-06-22 00:08] VITALS: BP_SYST 141; PULSE 70; RESP 18; TEMP 98; O2SAT 98
[2023-06-22 06:06] LABS: BASOPHILS % (AUTO) 0.3 % (0.0-2.0); EOSINOPHILS # (AUTO) 0.2 K/uL (0.0-0.4); HEMATOCRIT 45.2 % (36-54); HEMOGLOBIN 14.7 g/dL (14.0-18.0); LYMPHOCYTES # (AUTO) 1.8 K/uL (1.0-5.5); LYMPHOCYTES % (AUTO) 18.2 % (20.5-51.5); MEAN CORPUSCULAR HEMOGLOBIN 28 pg (27-31); MEAN CORPUSCULAR HGB CONC 33 % (32-36); MEAN CORPUSCULAR VOLUME 87 fL (79.0-98.0); MONOCYTES # (AUTO) 0.7 K/uL (0.0-1.0); MONOCYTES % (AUTO) 6.9 % (1.7-9.3); NEUTROPHILS # (AUTO) 7.1 K/uL (1.8-7.7); NEUTROPHILS % (AUTO) 72.6 % (40.0-70.0); PLATELET COUNT (AUTO) 188 K/uL (130-430); RED BLOOD CELL COUNT(AUTO) 5.21 MIL/uL (4.2-6.2); RED CELL DISTRIBUTION WIDTH 13.9 % (9.0-15.0); WHITE BLOOD COUNT (AUTO) 9.8 K/uL (4.8-10.8)
[2023-06-22 06:34] LABS: CALCIUM 9.6 mg/dL (8.4-11.0); CREATININE 0.57 mg/dL (0.55-1.30); POTASSIUM 3.3 mmol/L (3.5-5.1)
[2023-06-22 08:00] VITALS: BP_SYST 156; PULSE 67; RESP 16; TEMP 98; O2SAT 74; O2SAT 96
[2023-06-22] MEDS: ASCORBIC ACID 500 MG TABLET GT SCH (09:34)
[2023-06-22] MEDS: lisinopriL 20 MG TABLET GT SCH (09:34)
[2023-06-22] MEDS: MEMANTINE HCL 5 MG TABLET GT SCH (09:34)
[2023-06-22] MEDS: glipiZIDE XL 5 MG TAB ( GLUCOTROL XL) PO SCH (09:35)
[2023-06-22] MEDS: METOPROLOL TARTRATE 50 MG TABLET GT SCH (09:35)
[2023-06-22] MEDS: FERROUS SULFATE 325 MG TABLET.DR GT SCH (09:35)
[2023-06-22] MEDS: LevETIRAcetam 500 MG/5 ML UDC ORAL LIQUID GT SCH (09:36)
[2023-06-22] MEDS: ATORVASTATIN 20 MG TABLET GT SCH (09:36)
[2023-06-22] MEDS: ASPIRIN 81 MG TAB.CHEW GT SCH (09:36)
[2023-06-22] MEDS: HEPARIN SODIUM,PORCINE 5,000 UNITS/ML VIAL SUBCUT SCH (09:37)
[2023-06-22 12:00] VITALS: BP_SYST 147; PULSE 74; RESP 17; TEMP 97.5; O2SAT 97
[2023-06-22] MEDS ORDERED: LEVE500T9 GT (12:39)
[2023-06-22 12:41] VITALS: BP_SYST 147; PULSE 70; RESP 16; TEMP 97; O2SAT 96
[2023-06-22 16:05] VITALS: BP_SYST 146; PULSE 69; RESP 16; TEMP 98.1; O2SAT 95
== END 2023-06-22 16:00 | DRG 53 ==
LOC: SED 20:30 → STU 06-21 01:54
PROVIDERS: ADMIT General Practice; ATTEND General Practice
PROC: 4A00X4Z Measurement of Central Nervous Electrical Activity, External Approach (ICD-10-PCS; principal; 2023-06-21)
DX: G40.909 Epilepsy, unspecified, not intractable, without status epilepticus (principal); E44.1 Mild protein-calorie malnutrition; R53.2 Functional quadriplegia; G93.89 Other specified disorders of brain; G30.9 Alzheimer's disease, unspecified; F02.80 Dementia in other diseases classified elsewhere, unspecified severity, without behavioral disturbance, psychotic disturbance, mood disturbance, and anxiety; G90.8 Other disorders of autonomic nervous system; N39.0 Urinary tract infection, site not specified; R13.10 Dysphagia, unspecified; Z66 Do not resuscitate; E78.5 Hyperlipidemia, unspecified; I10 Essential (primary) hypertension; K21.9 Gastro-esophageal reflux disease without esophagitis; Z93.1 Gastrostomy status; Z86.73 Personal history of transient ischemic attack (TIA), and cerebral infarction without residual deficits; Z79.4 Long term (current) use of insulin; Z74.01 Bed confinement status; Z79.82 Long term (current) use of aspirin; Z79.899 Other long term (current) drug therapy; Z68.23 Body mass index [BMI] 23.0-23.9, adult
CPT/HCPCS: 36415; 70450-TC; 76376; 80048; 80053; 81000; 81001; 81015; 82542; 82962; 83037; 83735; 85025; 87040; 87081; 87086; 93005; 95816; 96365; 96367; 99285; G0378; J0696; J1644; J1953; J7060